=== PATIENT | female | born 1960 | race Caucasian/White ===

== ENCOUNTER 2018-07-01 19:21 | Inpatient (IN) | payer OTHER ==
[2018-07-01] MEDS ORDERED: ALBUTEROL NEBULIZED 2.5 MG/3 ML INHALATION STA (20:41)
[2018-07-01] MEDS ORDERED: ACETAMINOPHEN TAB 500 MG TAB PO STA (20:41)
[2018-07-01] MEDS ORDERED: SODIUM CHLORIDE 0.9% 500 ML 500 ML IV STA (20:41)
[2018-07-01] MEDS ORDERED: PIPERACILLIN-TAZOBACTAM 3.375 GM in SODIUM CHLORIDE 0.9% 100 ML IVPB STA (21:26)
--- NOTE | 2018-07-01 21:26 | ED ---
General Adult HPI - General Chief complaint: Upper Respiratory Infection Stated complaint: Sore throat, cough Time Seen by Provider: 07/01/18 20:03 Source: patient, family, RN notes reviewed Mode of arrival: ambulatory Limitations: no limitations - History of Present Illness Initial comments: Chief complaint and history of present illness this is a 58-year-old female here with her daughter. The patient reports she's been having a cough and congestion for almost 2 weeks. She saw her family doctor was placed on Augmentin for which she took for 4 days and then switched over to Levaquin for which she's been on one week. More recently prednisone was added and loratadine as well. Patient persisted with temperature 101.8 still with productive sounding cough. - Related Data Home Medications Medication Instructions Recorded Confirmed Levofloxacin [Levaquin] 500 mg PO DAILY MDD X 10 DAYS 07/01/18 07/01/18 Loratadine [Claritin] 10 mg PO DAILY 07/01/18 07/01/18 Promethazine 6.25MG/5Ml [Phenergan 5 - 10 ml PO QID 07/01/18 07/01/18 Syrup] predniSONE See Taper PO DIRECTED 07/01/18 07/01/18 Allergies Allergy/AdvReac Type Severity Reaction Status Date / Time No Known Allergies Allergy Verified 07/01/18 21:01 Review of Systems ROS Statement: Those systems with pertinent positive or pertinent negative responses have been documented in the HPI. Review of systems no headache or visual acuity changes no chest pain but she does have a productive sounding cough denies nausea vomiting. Past medical problems significant for breast cancer 15 years ago. The patient had a tubal ligation and right mastectomy. Family history significant for a sister with breast cancer. Patient denies any ALLERGIES she does smoke strongly encouraged to stop denies alcohol. The patient has no known ALLERGIES. ROS Other: All systems not noted in ROS Statement are negative. Past Medical History Past Medical History: Cancer, Skin Disorder Additional Past Medical History / Comment(s): OB history: 3 vaginal deliveries History of Any Multi-Drug Resistant Organisms: None Reported Past Surgical History: Tubal Ligation Additional Past Surgical History / Comment(s): right mastectomy 2002, with implants to both sides 2003,HERNIA-LT ING A CHILD, CORNEAL TRANSPLANT RT EYE 1997, ALL BOTTOM TEETH REMOVED 10/2014 Past Anesthesia/Blood Transfusion Reactions: Postoperative Nausea & Vomiting ( PONV) Additional Past Anesthesia/Blood Transfusion Reaction / Comment(s): PONV WITH TEETH EXTRACTIONS 10/2014 Past Psychological History: No Psychological Hx Reported Smoking Status: Current every day smoker Past Alcohol Use History: None Reported Past Drug Use History: None Reported - Past Family History Mother Family Medical History: Cancer Additional Family Medical History / Comment(s): BREAST CA Father Family Medical History: Cancer Additional Family Medical History / Comment(s): PROSTATE General Exam - General Exam Comments Initial Comments: General: The patient is awake and alert, presents with a persistent cough for over one week. With failed outpatient treatment. Temperature 101.8 pulse 93 respiratory rate 18 pulse ox 94% room air blood pressure 98/59. Eye: Pupils are equal, round and reactive to light, extra-ocular movements are intact ; there is normal conjunctiva bilaterally. No signs of icterus. Ears, nose, mouth and throat: There are moist mucous membranes and no oral lesions. Neck: The neck is supple, there is no tenderness . Cardiovascular: There is a regular rate and rhythm. No murmur, rub or gallop is appreciated. Respiratory: Lungs are clear to auscultation, respirations are non-labored, breath sounds are equal. Patient does have a cough which sounds productive complains of sore throat from frequent coughing Gastrointestinal: Soft, non-distended, non-tender abdomen without masses or organomegaly noted. There is no rebound or guarding present. No CVA tenderness. Bowel sounds are unremarkable. Denies diarrhea Back: There is no tenderness to palpation in the midline. There is no obvious deformity. No rashes noted. Musculoskeletal: Normal ROM, no tenderness, There is no pedal edema. There is no calf tenderness or swelling. Sensation intact. Neurological: No neuro deficits Skin: Skin is warm and dry and no rashes or lesions are noted. Psychiatric: Cooperative, Limitations: no limitations Course Vital Signs 07/01/18 07/01/18 07/01/18 19:50 21:26 21:36 Temperature 101.8 F H Pulse Rate 93 102 H 112 H Respiratory 18 14 Rate Blood Pressure 98/59 O2 Sat by Pulse 94 L Oximetry 07/01/18 22:23 Temperature 101.2 F H Pulse Rate 84 Respiratory 16 Rate Blood Pressure 113/47 O2 Sat by Pulse 93 L Oximetry Medical Decision Making - Medical Decision Making Patient has been on Augmentin and Levaquin for approximate 7 days without resolution of her cough. Labs show white count of 7 hemoglobin 14 hematocrit of 42 with a potassium 3.9. BUN 14 creatinine 0.8 for the GFR 76. Urine clean no signs of infection. X-ray of the chest was done and reviewed by radiologist his impression is right lower lobe bronchopneumonia. As read by Dr. Master Edmonds The patient had ordered been started on Zosyn for failed outpatient treatment. Case discussed with florentino operations administrative assistant for Dr. Hagen. Patient admitted the hospital and be continued on Zosyn. Cultures pending - Lab Data Result diagrams: 07/01/18 21:18 07/01/18 21:18 Lab Results 07/01/18 07/01/18 07/01/18 Range/Units 21:10 21:18 21:18 WBC 7.0 (3.8-10.6) k/uL RBC 4.76 (3.80-5.40) m/uL Hgb 14.5 (11.4-16.0) gm/dL Hct 42.6 (34.0-46.0) % MCV 89.6 (80.0-100.0) fL MCH 30.5 (25.0-35.0) pg MCHC 34.1 (31.0-37.0) g/dL RDW 13.1 (11.5-15.5) % Plt Count 168 (150-450) k/uL Neutrophils % 94 % Lymphocytes % 2 % Monocytes % 2 % Eosinophils % 2 % Basophils % 0 % Neutrophils # 6.5 (1.3-7.7) k/uL Lymphocytes # 0.2 L (1.0-4.8) k/uL Monocytes # 0.1 (0-1.0) k/uL Eosinophils # 0.1 (0-0.7) k/uL Basophils # 0.0 (0-0.2) k/uL Sodium 133 L (137-145) mmol/L Potassium 3.9 (3.5-5.1) mmol/L Chloride 99 (98-107) mmol/L Carbon Dioxide 23 (22-30) mmol/L Anion Gap 11 mmol/L BUN 14 (7-17) mg/dL Creatinine 0.84 (0.52-1.04) mg/dL Est GFR (CKD-EPI)AfAm 88 (>60 ml/min/1.73 sqM) Est GFR (CKD-EPI)NonAf 76 (>60 ml/min/1.73 sqM) Glucose 129 H (74-99) mg/dL Calcium 9.2 (8.4-10.2) mg/dL Urine Color Yellow Urine Appearance Clear (Clear) Urine pH 5.5 (5.0-8.0) Ur Specific [place] 1.022 (1.001-1.035) Urine Protein 1+ H (Negative) Urine Glucose (UA) Negative (Negative) Urine Ketones Negative (Negative) Urine Blood Small H (Negative) Urine Nitrite Negative (Negative) Urine Bilirubin Negative (Negative) Urine Urobilinogen <2.0 (<2.0) mg/dL Ur Leukocyte Esterase Negative (Negative) Urine RBC 1 (0-5) /hpf Urine WBC 2 (0-5) /hpf Ur Squamous Epith Cells 1 (0-4) /hpf Amorphous Sediment Rare H (None) /hpf Urine Bacteria Rare H (None) /hpf Hyaline Casts 1 (0-2) /lpf Urine Mucus Moderate H (None) /hpf Disposition Clinical Impression: Pneumonia Disposition: ADMITTED IP TO THIS HOSP Condition: Fair Is patient prescribed a controlled substance at d/c from ED?: No Referrals: Isma Santiago MD [Primary Care Provider] - 1-2 days
[2018-07-01 21:40] LABS: Amorphous Sediment,Urine Rare /hpf; Appearance,Urine Clear (Clear); Bacteria,Urine Rare /hpf; Bilirubin,Urine Negative (Negative); Blood,Urine Small (Negative); Color,Urine Yellow; Glucose,Urine (UA) Negative (Negative); Hyaline Casts,Urine 1 /lpf (0-2); Ketones,Urine Negative (Negative); Leukocyte Esterase,Urine Negative (Negative); Mucus,Urine Moderate /hpf; Nitrite,Urine Negative (Negative); PH, Urine 5.5 (5.0-8.0); Protein,Urine 1+ (Negative); RBC,Urine 1 /hpf (0-5); Specific Gravity,Urine 1.022 (1.001-1.035); Squamous Epithelial Cell,Urine 1 /hpf (0-4); Urobilinogen,Urine <2.0 mg/dL (<2.0)
[2018-07-01 21:41] LABS: Basophils % (A) 0 %; Eosinophils # (A) 0.1 k/uL (0-0.7); Eosinophils % (A) 2 %; HCT 42.6 % (34.0-46.0); HGB 14.5 gm/dL (11.4-16.0); Lymphocytes # (A) 0.2 k/uL (1.0-4.8); Lymphocytes % (A) 2 %; MCH 30.5 pg (25.0-35.0); MCHC 34.1 g/dL (31.0-37.0); MCV 89.6 fL (80.0-100.0); Mean Platelet Volume 6.4; Monocytes # (A) 0.1 k/uL (0-1.0); Monocytes % (A) 2 %; Neutrophils # (A) 6.5 k/uL (1.3-7.7); Neutrophils % (A) 94 %; Platelet Count 168 k/uL (150-450); RBC 4.76 m/uL (3.80-5.40); RDW 13.1 % (11.5-15.5)
[2018-07-01 21:43] LABS: Calcium 9.2 mg/dL (8.4-10.2); Potassium 3.9 mmol/L (3.5-5.1)
--- NOTE | 2018-07-01 21:57 | XR ---
EXAMINATION: XR chest 2V DATE AND TIME: 07/01/2018 9:50 PM CLINICAL INDICATION: Productive cough TECHNIQUE: PA and lateral COMPARISON: None. FINDINGS: The lungs are positive for consolidative opacity in the right lower lobe consistent with bronchopneum onia. Lungs are otherwise unremarkable. The pleural spaces are negative. The cardiac silhouette is not enlarged. The remainder of the mediastinal silhouette is unremarkable. Skeletal structures: No acute findings. Soft tissues: Asymmetric breast shadows noted, findings which suggest right mastectomy and left breas t implant. Request history confirmation. IMPRESSION: RIGHT LOWER LOBE BRONCHOPNEUMONIA. Recommend six-week follow-up PA and lateral chest radiograph to prove complete resolution.
[2018-07-01] MEDS ORDERED: SODIUM CHLORIDE 0.9% 1,000 ML IV SCH (22:30)
[2018-07-01] MEDS ORDERED: ONDANSETRON 4 MG/2 ML VIAL IVP PRN (22:30)
[2018-07-01] MEDS ORDERED: NALOXONE 0.4 MG/ML 1 ML VIAL IV PRN (22:30)
[2018-07-01] MEDS ORDERED: SODIUM CHLORIDE 0.9% 500 ML 500 ML IV ONE (22:39)
[2018-07-01] MEDS ORDERED: SODIUM CHLORIDE 0.9% 500 ML IV SCH (22:45)
[2018-07-02 00:12] VITALS: BMI 27.4
[2018-07-02] MEDS: ACETAMINOPHEN TAB 325 MG TAB PO PRN ×2 (00:19→08:01)
[2018-07-02] MEDS: PIPERACILLIN-TAZOBACTAM 3.375 GM in SODIUM CHLORIDE 0.9% 100 ML IVPB SCH ×2 (06:02→14:34)
[2018-07-02] MEDS: FAMOTIDINE 20 MG TAB PO SCH ×2 (08:01→20:55)
[2018-07-02] MEDS: NICOTINE 14MG/24HR PATCH TRANSDERM SCH (09:42)
[2018-07-02] MEDS ORDERED: PROMETHAZ-COD 6.25-10 MG/5 ML 5 ML CUP PO PRN (12:00)
[2018-07-02 12:14] LABS: Basophils % (A) 0 %; Eosinophils # (A) 0.1 k/uL (0-0.7); Eosinophils % (A) 4 %; HCT 37.2 % (34.0-46.0); HGB 12.7 gm/dL (11.4-16.0); Lymphocytes # (A) 0.2 k/uL (1.0-4.8); Lymphocytes % (A) 6 %; MCH 30.8 pg (25.0-35.0); MCHC 34.1 g/dL (31.0-37.0); MCV 90.2 fL (80.0-100.0); Mean Platelet Volume 6.9; Monocytes # (A) 0.1 k/uL (0-1.0); Monocytes % (A) 4 %; Neutrophils # (A) 3.1 k/uL (1.3-7.7); Neutrophils % (A) 85 %; Platelet Count 148 k/uL (150-450); RBC 4.13 m/uL (3.80-5.40); WBC 3.7 k/uL (3.8-10.6)
[2018-07-02] MEDS: ACETAMINOPHEN TAB 500 MG TAB PO PRN (13:25)
[2018-07-02] MEDS ORDERED: IPRATROPIUM-ALBUTEROL 3 ML NEB INHALATION PRN (13:52)
[2018-07-02] MEDS: SODIUM CHLORIDE 0.9% 1,000 ML IV SCH (14:36)
--- NOTE | 2018-07-02 15:19 | P.HPIM ---
History of Present Illness Patient is a 58-year-old female came in with comments of fever cough unable to bring up anything patient has the symptoms going on for more than 2 weeks appears to have started as viral upper respiratory last patient is a smoker. Doesn't have any history of COPD no wheezing at this time initially patient was on Augmentin the levofloxacin without any significant improvement and started having fever couple days ago. Patient is found to have pneumonia in the right lower lobe patient does have leukocytosis. Patient failed outpatient antibiotics because of which she is admitted for IV antibiotics for right lower lobe pneumonia. Review of Systems REVIEW OF SYSTEMS: CONSTITUTIONAL: no fatigue. HEENT: No recent visual problems or hearing problems. Denied any sore throat. CARDIOVASCULAR: No chest pain, orthopnea, PND, no palpitations, no syncope. PULMONARY: No shortness of breath, no hemoptysis. GASTROINTESTINAL: No diarrhea, no nausea, no vomiting, no abdominal pain. Normoactive bowel sounds. NEUROLOGICAL: No headaches, no weakness, no numbness. HEMATOLOGICAL: Denies any bleeding or petechiae. GENITOURINARY: Denies any burning micturition, frequency, or urgency. MUSCULOSKELETAL/RHEUMATOLOGICAL: Denies any joint pain, swelling, or any muscle pain. ENDOCRINE: Denies any polyuria or polydipsia. The rest of the 14-point review of systems is negative. Past Medical History Past Medical History: Cancer Additional Past Medical History / Comment(s): OB history: 3 vaginal deliveries History of Any Multi-Drug Resistant Organisms: None Reported Past Surgical History: Tubal Ligation Additional Past Surgical History / Comment(s): right mastectomy 2002, with implants to both sides 2003,HERNIA-LT ING A CHILD, CORNEAL TRANSPLANT RT EYE 1997, ALL BOTTOM TEETH REMOVED 10/2014 Past Anesthesia/Blood Transfusion Reactions: Postoperative Nausea & Vomiting ( PONV) Additional Past Anesthesia/Blood Transfusion Reaction / Comment(s): PONV WITH TEETH EXTRACTIONS 10/2014 Past Psychological History: No Psychological Hx Reported Smoking Status: Current every day smoker Past Alcohol Use History: None Reported Additional Past Alcohol Use History / Comment(s): STARTED SMOKING @ AGE 17(1976 ) -1PPD Past Drug Use History: None Reported - Past Family History Mother Family Medical History: Cancer Additional Family Medical History / Comment(s): BREAST CA Father Family Medical History: Cancer Additional Family Medical History / Comment(s): PROSTATE Medications and Allergies Home Medications Medication Instructions Recorded Confirmed Type Levofloxacin [Levaquin] 500 mg PO DAILY MDD X 10 DAYS 07/01/18 07/01/18 History Loratadine [Claritin] 10 mg PO DAILY 07/01/18 07/01/18 History Promethazine 6.25MG/5Ml [Phenergan 5 - 10 ml PO QID 07/01/18 07/01/18 History Syrup] predniSONE See Taper PO DIRECTED 07/01/18 07/01/18 History Allergies Allergy/AdvReac Type Severity Reaction Status Date / Time No Known Allergies Allergy Verified 07/01/18 21:01 Physical Exam Vitals: Vital Signs Temp Pulse Pulse Resp BP BP Pulse Ox 07/02/18 08:05 98.2 F 63 18 96/57 96 07/01/18 23:31 100.3 F H 07/01/18 23:29 78 16 107/53 98 07/01/18 22:23 101.2 F H 84 16 113/47 93 L 07/01/18 21:36 112 H 07/01/18 21:26 102 H 14 07/01/18 19:50 101.8 F H 93 18 98/59 94 L Intake and Output 07/02/18 07/02/18 07/02/18 06:59 14:59 22:59 Intake Total 625 Balance 625 Intake: Intake, IV Titration 625 Amount Sodium Chloride 0.9% 1, 625 000 ml @ 125 mls/hr IV . Q8H [facility] Rx#:[id number] Other: Weight 72.575 kg PHYSICAL EXAMINATION: GENERAL: The patient is alert and oriented x3, not in any acute distress. Well developed, well nourished. HEENT: Pupils are round and equally reacting to light. EOMI. No scleral icterus. No conjunctival pallor. Normocephalic, atraumatic. No pharyngeal erythema. No thyromegaly. CARDIOVASCULAR: S1 and S2 present. No murmurs, rubs, or gallops. PULMONARY: Chest is clear to auscultation, no wheezing or crackles. ABDOMEN: Soft, nontender, nondistended, normoactive bowel sounds. No palpable organomegaly. MUSCULOSKELETAL: No joint swelling or deformity. EXTREMITIES: No cyanosis, clubbing, or pedal edema. NEUROLOGICAL: Gross neurological examination did not reveal any focal deficits. SKIN: No rashes. Results CBC & Chem 7: 07/02/18 09:26 07/01/18 21:18 Labs: Abnormal Lab Results - Last 24 Hours (Table) 07/01/18 07/01/18 07/01/18 Range/Units 21:10 21:18 21:18 WBC (3.8-10.6) k/uL Plt Count (150-450) k/uL Lymphocytes # 0.2 L (1.0-4.8) k/uL Sodium 133 L (137-145) mmol/L Glucose 129 H (74-99) mg/dL Urine Protein 1+ H (Negative) Urine Blood Small H (Negative) Amorphous Sediment Rare H (None) /hpf Urine Bacteria Rare H (None) /hpf Urine Mucus Moderate H (None) /hpf 07/02/18 Range/Units 09:26 WBC 3.7 L (3.8-10.6) k/uL Plt Count 148 L (150-450) k/uL Lymphocytes # 0.2 L (1.0-4.8) k/uL Sodium (137-145) mmol/L Glucose (74-99) mg/dL Urine Protein (Negative) Urine Blood (Negative) Amorphous Sediment (None) /hpf Urine Bacteria (None) /hpf Urine Mucus (None) /hpf Thrombosis Risk Factor Assmnt - Choose All That Apply Each Factor Represents 1 point: Age 41-60 years Other Risk Factors: No Other congenital or acquired thrombophilia - If yes, enter type in comment: No Thrombosis Risk Factor Assessment Total Risk Factor Score: 1 Thrombosis Risk Factor Assessment Level: Low Risk Assessment and Plan Plan: -Right lower lobe, today quite pneumonia most probably pneumococcal: Patient will be started on Rocephin and azithromycin and discontinue Zosyn. -Hyponatremia hypotonic hyponatremia patient will be started on IV fluids -Possible that they have noticed of COPD although patient is not in acute exacerbation at this time patient may benefit from outpatient pulmonary testing nicotine cessation counseling was provided. Patient will be switched to oral steroids continue with inhalational treatments -Nicotine abuse: Counseling was provided Patient will need GI prophylaxis with the Pepcid DVT prophylaxis: Early ablation will not need any pharmacologic DVT prophylaxis
[2018-07-02] MEDS: predniSONE 20 MG TAB PO SCH (16:03)
[2018-07-02] MEDS: IPRATROPIUM-ALBUTEROL 3 ML NEB INHALATION SCH ×2 (16:47→20:29)
[2018-07-02] MEDS: cefTRIAXone 2,000 MG in SODIUM CHLORIDE 0.9% 100 ML IVPB SCH (17:56)
[2018-07-02] MEDS ORDERED: methylPREDNISolone SOD SUCCI 40 MG/ML 1 ML VIAL IV SCH (18:00)
[2018-07-02] MEDS: BUDESONIDE 1 MG/2 ML NEBU INHALATION SCH (20:29)
[2018-07-02] MEDS: FORMOTEROL FUMARATE 20 MCG/2 ML NEBU INHALATION SCH (20:35)
--- NOTE | 2018-07-02 22:30 | CONS ---
CONSULTATION This is a 58-year-old female who likely has underlying COPD. She has been smoking for 35 years or so. She smokes a pack and half a day. The last couple of weeks she has been feeling well. The patient states that she is having complaints of shortness of breath, chest tightness, wheezing and cough. She went to her primary doctor, Dr. Santiago. She received some antibiotics. She took that for a few days and then switched over to another antibiotic. I believe she was on Augmentin first and then Levaquin. In addition, she was given some prednisone and loratadine. Despite all of that, she did not improve and for that reason she decided to come into the emergency room to be seen. She presented to the ER on July 01. Her complaints included shortness of breath, chest tightness, wheezing and cough. She was coughing up some phlegm. She had a slight temperature elevation as well. The patient was wheezing. She had lots of chest congestion. Not coughing up any blood. There was no chest pain or chest discomfort. There was no nausea, vomiting or diarrhea. She states she is otherwise healthy and takes no medications at home on a regular basis. She is a heavy smoker though. HOME MEDICATIONS: Only included the medications that she was given by Dr. Santiago. This included initially Augmentin and then Levaquin, loratadine, some cough syrup with codeine and prednisone. ALLERGIES: Denied. PAST MEDICAL HISTORY: Includes previous right mastectomy for breast cancer back in 2002. The patient also has a history of corneal transplant in the right eye, all of her bottom teeth removed back in 2014 and a tubal ligation. She has also had 3 vaginal deliveries. SOCIAL HISTORY: Positive for ongoing tobacco use. She smokes at least a pack of cigarettes a day or maybe a bit more. Denies any alcohol or illicit drug use. FAMILY HISTORY: Positive for breast cancer and prostate disease. OCCUPATIONAL HISTORY: Noncontributory. Again, she takes no medications at home on a regular basis. Has never been seen by a lung doctor. Has never been diagnosed with COPD. REVIEW OF SYSTEMS: CONSTITUTIONAL: Negative. NEUROLOGIC: Negative. HEENT: Negative. CARDIOVASCULAR: Negative. PULMONARY: Shortness of breath, chest tightness, wheezing, cough, chest congestion and phlegm production. GI/: Negative. RHEUMATOLOGIC/IMMUNOLOGIC: Negative. ENDOCRINOLOGIC AND DERMATOLOGIC: Negative. Current vital signs are reviewed. They include a temperature of 100.3, heart rate 63, respiratory rate 18, blood pressure 96/57, mean 70, room air saturation 96%. Appears in no acute distress. HEENT examination is grossly unremarkable. Mucous membranes are moist. No oral lesions. NECK: Supple. Full range of motion. No adenopathy or thyromegaly. Neck veins are flat. Cardiovascular examination reveals regular rhythm rate. Heart rate about mid 70. S1, S2 normal. No S3, S4, murmur. Lungs reveal diffuse inspiratory and expiratory wheezes and rhonchi. Breath sounds are diminished throughout. There is prolongation on forced maneuver. Adventitious lung sounds are more prominent on forced maneuver and she coughs on forced maneuver. No crackles. Abdomen is soft bowel sounds are heard. Extremities are intact. No cyanosis, clubbing, or edema. Skin without rash. Neurologic examination is brief but nonfocal. Chest is reviewed. Chest x-ray shows possible infiltrate right lower lobe. Looks more like atelectasis to me. Could be an infiltrate. LABS: Reviewed. White count 3.7, hemoglobin 12.7, hematocrit 37.2, platelet count 148,000. Sodium 133. Potassium, chloride, CO2 all normal. Anion gap normal. BUN and creatinine were 14 and 0.84. Urine is negative. Medications are reviewed. She is currently on the Zosyn. She is also on promethazine with codeine cough syrup. We are going to add some DuoNeb. Would also add some Pulmicort and Perforomist. We will also add some Solu-Medrol. ASSESSMENT: 1. Chronic obstructive pulmonary disease exacerbation complicated by bronchitis and possible bronchial pneumonia, right lower lobe. 2. Ongoing tobacco use with nicotine addiction. 3. Failing outpatient therapy. 4. Probable chronic obstructive pulmonary disease based on the patient's longstanding history of tobacco use. PLAN: The patient will get DuoNeb q.i.d. p.r.n. The patient will also get Perforomist and Pulmicort 1 mg twice a day. We will add Solu-Medrol 60 mg q.6h. Additional recommendations and suggestions are forthcoming. Prognosis is guarded. We will continue to follow. She will need outpatient evaluation and PFTs. We counseled her about the importance of smoking cessation. MMODL / IJN: [id number] /
[2018-07-03] MEDS ORDERED: BENZOCAINE/MENTHOL LOZENG 1 EACH LOZENGE MUCOUS MEM PRN (01:13)
[2018-07-03] MEDS: SODIUM CHLORIDE 0.9% 1,000 ML IV SCH ×3 (01:40→21:07)
[2018-07-03 07:47] LABS: HCT 34.9 % (34.0-46.0); HGB 11.8 gm/dL (11.4-16.0); MCH 30.8 pg (25.0-35.0); MCHC 33.9 g/dL (31.0-37.0); MCV 90.8 fL (80.0-100.0); Mean Platelet Volume 6.9; Platelet Count 141 k/uL (150-450); RBC 3.84 m/uL (3.80-5.40); RDW 13.2 % (11.5-15.5); WBC 3.6 k/uL (3.8-10.6)
[2018-07-03 07:59] LABS: Anion Gap 6 mmol/L; Blood Urea Nitrogen 11 mg/dL (7-17); Calcium 8.4 mg/dL (8.4-10.2); Carbon Dioxide 23 mmol/L (22-30); Chloride 109 mmol/L (98-107); Glucose 108 mg/dL (74-99); Sodium 138 mmol/L (137-145)
[2018-07-03] MEDS: IPRATROPIUM-ALBUTEROL 3 ML NEB INHALATION SCH ×4 (08:48→20:39)
[2018-07-03] MEDS: FORMOTEROL FUMARATE 20 MCG/2 ML NEBU INHALATION SCH ×2 (08:48→20:47)
[2018-07-03] MEDS: BUDESONIDE 1 MG/2 ML NEBU INHALATION SCH ×2 (08:48→20:40)
[2018-07-03 08:53] VITALS: RESP 16
[2018-07-03] MEDS: cefTRIAXone 2,000 MG in SODIUM CHLORIDE 0.9% 100 ML IVPB SCH (09:00)
[2018-07-03] MEDS: FAMOTIDINE 20 MG TAB PO SCH ×2 (09:01→21:02)
[2018-07-03] MEDS: NICOTINE 14MG/24HR PATCH TRANSDERM SCH (09:01)
[2018-07-03] MEDS: ACETAMINOPHEN TAB 500 MG TAB PO PRN (09:01)
[2018-07-03] MEDS: predniSONE 20 MG TAB PO SCH (09:01)
[2018-07-03] MEDS: AZITHROMYCIN 500 MG TAB PO SCH (09:01)
--- NOTE | 2018-07-03 13:55 | PN ---
PROGRESS NOTE DATE OF SERVICE: July 03, 2018 This is a 58-year-old female who we saw yesterday in consultation. She sees one of the local family doctors. She has been treated for an upper respiratory tract infection with some antibiotics and steroids. She has got a long-term history of tobacco use, smoking for at least 35 years at 1 and half packs a day. Has never seen a lung doctor in the past and has no formal diagnosis of COPD, although it is very apparent to me that she likely has it. Anyway, she comes in with complaints of shortness of breath, chest tightness, wheezing, cough, and phlegm production. She was given Augmentin initially and then switched to Levaquin. She was also given some steroids and some loratadine. Despite all that, she did not improve and for that reason she came into the hospital to be evaluated. While in the hospital, she was found to have a possible right lower lobe infiltrate and was admitted with a diagnosis of chronic obstructive pulmonary disease exacerbation and right lower lobe pneumonia. Today she is feeling better. She is less short of breath. Not currently back to baseline. The patient still has shortness of breath, chest tightness, wheezing, cough, chest congestion, and phlegm production. No fever or chills. She also has a history of previous right mastectomy for breast cancer back in 2002. Current vital signs are reviewed temperature is 99.1, heart rate 82, respiratory 16, blood pressure 126/78, mean 88, room air saturation 99%. She appears in no acute distress. She does look better today. HEENT examination is grossly unremarkable. Mucous membranes are moist. No oral lesions. No nasal O2 noted. She is on room air. Neck is supple. Full range of motion. No adenopathy or thyromegaly. Neck veins are flat. Cardiovascular examination reveals regular rhythm and rate. Heart rate about 60 beats per minute. S1, S2 normal. Lungs reveal diffuse inspiratory and expiratory wheezes or rhonchi. There is prolongation on forced maneuver. No crackles. The patient wheezes and coughs on forced maneuver. Abdomen is soft. Bowel sounds are heard. There is no masses or tenderness. Extremities are intact. There is no cyanosis, clubbing, or edema. Skin without rash. Her neurologic examination is brief but nonfocal. LAB DATA: Today includes a white count of 3.6, hemoglobin 11.8, hematocrit 34.9, platelet count 141,000. Sodium 138, potassium 4, chloride 109 CO2 is 23, BUN and creatinine were 11 and 0.6. Chest x-ray shows a potential infiltrate right lower lobe. MEDICATIONS: Reviewed. She is on all appropriate medications including Zithromax and Rocephin. She is on Pulmicort and Perforomist twice a day. She is also on prednisone having been converted from Solu-Medrol. Microbiologic studies are thus far negative or pending. ASSESSMENT: 1. Chronic obstructive pulmonary disease exacerbation complicated by purulent tracheobronchitis and bronchial pneumonia, right lower lobe. 2. Hypoxemic respiratory failure secondary to chronic obstructive pulmonary disease and right lower lobe pneumonia. 3. Ongoing tobacco use with nicotine addiction. 4. Previous history of breast cancer with mastectomy. PLAN: The patient's medications are reviewed. Everything is appropriate. She seems to have improved significantly in the last 24 hours. The patient might be considered for discharge in the next 24-48 hours. I did gambling counsellor her about the importance of smoking cessation. In addition, she should see us in the office for complete pulmonary function testing so we can properly establish diagnosis of chronic obstructive pulmonary disease. Additional recommendations and suggestions forthcoming. Prognosis is guarded. MMODL / IJN: [id number] /
--- NOTE | 2018-07-03 15:51 | P.PN ---
Subjective Patient was admitted secondary to come in with a community-acquired pneumonia is feeling much better today. will occur 1 more day 5 antibodies possibly can be discharged tomorrow and oral antibiotics shortness of breath completely resolved Constitutional: Denied any fatigue denied any fever. Cardio vascular: denied any chest pain, palpitations Gastrointestinal denied any nausea vomiting Pulmonary: Denied any shortness of breath cough Neurologic denied any new focal deficits All inpatient medications were reviewed and appropriate changes in these medications as dictated in the interval history and assessment and plan. Objective - Vital Signs Vital signs: Vital Signs Temp 98.6 F 07/03/18 15:00 Pulse 67 07/03/18 15:00 Resp 16 07/03/18 15:00 BP 122/70 07/03/18 15:00 Pulse Ox 97 07/03/18 15:00 Intake & Output 07/02/18 07/03/18 07/03/18 18:59 06:59 18:59 Intake Total 238 271 9720 Balance 657 432 6017 Weight 72.575 kg Intake: Intake, IV Titration 100 800 800 Amount Sodium Chloride 0.9% 1, 800 700 000 ml @ 100 mls/hr IV . Q10H [facility]O Rx#:[id number] cefTRIAXone 2,000 mg In 100 100 Sodium Chloride 0.9% 100 ml @ 100 mls/hr IVPB Q24HR ELICEO Rx#:[id number] Oral 240 Other: Voiding Method Toilet Toilet # Voids 3 2 # Bowel Movements 1 - Exam PHYSICAL EXAMINATION: GENERAL: The patient is alert and oriented x3, not in any acute distress. Well developed, well nourished. HEENT: Pupils are round and equally reacting to light. EOMI. No scleral icterus. No conjunctival pallor. Normocephalic, atraumatic. No pharyngeal erythema. No thyromegaly. CARDIOVASCULAR: S1 and S2 present. No murmurs, rubs, or gallops. PULMONARY: Chest is clear to auscultation, no wheezing or crackles. ABDOMEN: Soft, nontender, nondistended, normoactive bowel sounds. No palpable organomegaly. MUSCULOSKELETAL: No joint swelling or deformity. EXTREMITIES: No cyanosis, clubbing, or pedal edema. NEUROLOGICAL: Gross neurological examination did not reveal any focal deficits. SKIN: No rashes. - Labs CBC & Chem 7: 07/03/18 07:06 07/03/18 07:06 Labs: Abnormal Lab Results - Last 24 Hours (Table) 07/03/18 07/03/18 Range/Units 07:06 07:06 WBC 3.6 L (3.8-10.6) k/uL Plt Count 141 L (150-450) k/uL Chloride 109 H (98-107) mmol/L Glucose 108 H (74-99) mg/dL Microbiology - Last 24 Hours (Table) 07/01/18 22:26 Blood Culture - Preliminary Blood No Growth after 24 hours Assessment and Plan Plan: -Right lower lobe, today quite pneumonia most probably pneumococcal: Patient will be started on Rocephin and azithromycin, possibility of discharge tommorow -Hyponatremia hypotonic hyponatremia E fluids and IV fluids will be discontinued COPD although patient is not in acute exacerbation at this time patient may benefit from outpatient pulmonary testing nicotine cessation counseling was provided. Patient will be switched to oral steroids continue with inhalational treatments -Nicotine abuse: Counseling was provided Patient will need GI prophylaxis with the Pepcid DVT prophylaxis: Early ablation will not need any pharmacologic DVT prophylaxis
[2018-07-03] MEDS ORDERED: MELATONIN 3 MG TABLET PO PRN (21:00)
[2018-07-03] MEDS ORDERED: MELATONIN 3 MG TABLET PO SCH (21:00)
[2018-07-04] MEDS: IPRATROPIUM-ALBUTEROL 3 ML NEB INHALATION SCH ×3 (07:41→16:02)
[2018-07-04] MEDS: FORMOTEROL FUMARATE 20 MCG/2 ML NEBU INHALATION SCH (07:42)
[2018-07-04] MEDS: BUDESONIDE 1 MG/2 ML NEBU INHALATION SCH (07:42)
[2018-07-04 08:23] VITALS: BP 133/75; TEMP 98.3
[2018-07-04] MEDS: ACETAMINOPHEN TAB 500 MG TAB PO PRN (09:18)
[2018-07-04] MEDS: NICOTINE 14MG/24HR PATCH TRANSDERM SCH (09:19)
[2018-07-04] MEDS: cefTRIAXone 2,000 MG in SODIUM CHLORIDE 0.9% 100 ML IVPB SCH (09:20)
[2018-07-04] MEDS: predniSONE 20 MG TAB PO SCH (09:20)
[2018-07-04] MEDS: AZITHROMYCIN 500 MG TAB PO SCH (09:20)
[2018-07-04] MEDS: FAMOTIDINE 20 MG TAB PO SCH (09:20)
[2018-07-04 11:18] VITALS: PULSE 72
--- NOTE | 2018-07-04 13:53 | P.DS ---
Providers Date of admission: 07/01/18 22:33 Attending physician: Oscar Hagen Consults: 07/02/18 12:01 Consult Physician Urgent Consulting Provider: Yuriy Bartlett Consult Reason/Comments: pneumonia Do you want consulting provider notified?: Yes Primary care physician: Pamela Ashby Hospital Course: Patient is admitted for community acquired pneumonia and mild soap exam patient clinically doing well will be discharged on Ceftin weaning dose of steroids will follow with PCP and dialysis registered nurse outpatient. Excessive counseling regarding nicotine cessation was provided PHYSICAL EXAMINATION: GENERAL: The patient is alert and oriented x3, not in any acute distress. Well developed, well nourished. HEENT: Pupils are round and equally reacting to light. EOMI. No scleral icterus. No conjunctival pallor. Normocephalic, atraumatic. No pharyngeal erythema. No thyromegaly. CARDIOVASCULAR: S1 and S2 present. No murmurs, rubs, or gallops. PULMONARY: Chest is clear to auscultation, no wheezing or crackles. ABDOMEN: Soft, nontender, nondistended, normoactive bowel sounds. No palpable organomegaly. MUSCULOSKELETAL: No joint swelling or deformity. EXTREMITIES: No cyanosis, clubbing, or pedal edema. NEUROLOGICAL: Gross neurological examination did not reveal any focal deficits. SKIN: No rashes. Assessment and Plan Plan: -Right lower lobe pneumonia most probably pneumococcal, community-acquired patient was on Rocephin and azithromycin will be discharged on Ceftin for 7 more days -Hyponatremia hypotonic hyponatremia improved with IV fluids COPD with mild acute exacerbation and patient -Nicotine abuse: Counseling was provided Patient Condition at Discharge: Fair Plan - Discharge Summary Discharge Rx Participant: Yes New Discharge Prescriptions: New Albuterol Inhaler [Ventolin Hfa Inhaler] 1 - 2 puff INHALATION Q6HR PRN #1 inhaler PRN Reason: Shortness Of Breath Or Wheezing Budesonide-Formot 160-4.5 Mcg [Symbicort 160-4.5 Mcg Inhaler] 2 puff INHALATION BID #1 inhaler Cefuroxime Axetil [Ceftin] 500 mg PO BID #14 tab predniSONE 10 mg PO DAILY #30 tab Tiotropium [place] [Spiriva] 1 cap INHALATION DAILY #1 device Discontinued Levofloxacin [Levaquin] 500 mg PO DAILY MDD X 10 DAYS predniSONE See Taper PO DIRECTED No Action Promethazine 6.25MG/5Ml [Phenergan Syrup] 5 - 10 ml PO QID Loratadine [Claritin] 10 mg PO DAILY Discharge Medication List Loratadine [Claritin] 10 mg PO DAILY 07/01/18 [History] Promethazine 6.25MG/5Ml [Phenergan Syrup] 5 - 10 ml PO QID 07/01/18 [History] Albuterol Inhaler [Ventolin Hfa Inhaler] 1 - 2 puff INHALATION Q6HR PRN #1 inhaler 07/04/18 [Rx] Budesonide-Formot 160-4.5 Mcg [Symbicort 160-4.5 Mcg Inhaler] 2 puff INHALATION BID #1 inhaler 07/04/18 [Rx] Cefuroxime Axetil [Ceftin] 500 mg PO BID #14 tab 07/04/18 [Rx] Tiotropium [place] [Spiriva] 1 cap INHALATION DAILY #1 device 07/04/18 [Rx] predniSONE 10 mg PO DAILY #30 tab 07/04/18 [Rx] Follow up Appointment(s)/Referral(s): Isma Santiago MD [Primary Care Provider] - 07/11/18 1:00 pm Yuriy Bartlett DO [Doctor of Osteopathic Medicine] - 07/19/18 2:45 pm (full pulmonary function work up) Patient Instructions/Handouts: Pneumonia (DC) Discharge Disposition: HOME SELF-CARE
--- NOTE | 2018-07-04 18:08 | P.PN ---
Subjective Progress Note Date: 07/04/18 78-year-old female patient was being seen in follow-up on today's evaluation regarding her pulmonary status and COPD. The patient is a chronic smoker and she is a 16-cnoy-gyly smoking history and she has COPD P at she has not seen a merchandising consultant in the past. She was being treated for a right lower lobe pneumonia and acute COPD exacerbation. She was given Augmentin and then she was switched to Levaquin. She was also given systemic steroids. She did improve and today she is very much close to her baseline. No nausea. No vomiting. No abdominal pain. I reviewed her chest x-ray. The patient has had previous mastectomy and breast implants back in 2002. I do not clearly appreciated the right lower lobe pneumonia. I think the findings in the chest x -ray is probably related to her breast implants causing some degree of opacification of the right lung base. Otherwise, the patient is emanating. No significant cough or sputum production. No fever chills or night sweats. No other significant events on today's evaluation. Objective - Vital Signs Vital signs: Vital Signs Temp 98.3 F 07/04/18 07:00 Pulse 72 07/04/18 11:24 Resp 16 07/04/18 09:19 BP 133/75 07/04/18 07:00 Pulse Ox 96 07/04/18 07:00 Intake & Output 07/03/18 07/04/18 07/04/18 18:59 06:59 18:59 Intake Total 1040 700 Balance 1040 700 Weight 72.575 kg Intake: Intake, IV Titration 800 Amount Sodium Chloride 0.9% 1, 700 000 ml @ 100 mls/hr IV . Q10H [facility] Rx#:[id number] cefTRIAXone 2,000 mg In 100 Sodium Chloride 0.9% 100 ml @ 100 mls/hr IVPB Q24HR [facility] Rx#:[id number] Oral 240 700 Other: Voiding Method Toilet Toilet # Voids 2 2 # Bowel Movements 1 - Exam The patient appeared well nourished and normally developed. Vital signs as documented. Head exam is unremarkable. No scleral icterus or corneal arcus noted. Neck is without jugular venous distension, thyromegaly, or carotid bruits. Carotid upstrokes are brisk bilaterally. Lungs are clear to auscultation and percussion. There is diminished breath sounds bilaterally and the patient has breast implants bilaterally. Cardiac exam reveals the PMI to be normally sized and situated. Rhythm is regular. First and second heart sounds normal. No murmurs, rubs or gallops. Abdominal exam reveals normal bowel sounds, no masses, no organomegaly and no aortic enlargement. Extremities are nonedematous and both femoral and pedal pulses are normal.Examination of the skin revealed no evidence of significant rashes, suspicious appearing nevi or other concerning lesions. Neurologically the patient is awake and alert and there is no focal neurological deficits. - Labs CBC & Chem 7: 07/03/18 07:06 07/03/18 07:06 Labs: Microbiology - Last 24 Hours (Table) 07/01/18 22:26 Blood Culture - Preliminary Blood No Growth after 48 hours Assessment and Plan Plan: Assessment 1 acute COPD exacerbation 2 questionable right lower lobe pneumonia based on the chest x-ray finding, improving currently on antibiotics 3 previous history of breast cancer with bilateral mastectomy and implants 4 smoker Plan Smoking cessation counseling was done. The patient is currently on room air. Completed the course of antibiotics and discharge this patient home on oral Levaquin. Outpatient 40 function tests. Outpatient prednisone burst taper. Cut down the IV fluids to KVO.
== END 2018-07-04 13:30 | disposition home or self-care (01) | DRG 193 ==
LOC: EC 19:21 → 4MS4W 22:33 → 4SSUR 23:18
PROVIDERS: ADMIT Hospitalist; ATTEND Hospitalist
DX: J13 Pneumonia due to Streptococcus pneumoniae (principal); J96.91 Respiratory failure, unspecified with hypoxia; E87.1 Hypo-osmolality and hyponatremia; J44.0 Chronic obstructive pulmonary disease with (acute) lower respiratory infection; J44.1 Chronic obstructive pulmonary disease with (acute) exacerbation; F17.210 Nicotine dependence, cigarettes, uncomplicated; Z71.6 Tobacco abuse counseling; F32.9 Major depressive disorder, single episode, unspecified; Z80.3 Family history of malignant neoplasm of breast; Z85.3 Personal history of malignant neoplasm of breast; Z90.13 Acquired absence of bilateral breasts and nipples; Z94.7 Corneal transplant status; Z98.82 Breast implant status
CPT/HCPCS: 36415; 71046; 80048; 81001; 85025; 85027; 87040; 94640; 96365; 96366; 99284

== ENCOUNTER → 2018-09-01 | Outpatient (CLI) | payer OTHER ==
--- NOTE | 2018-09-01 16:00 | US ---
EXAMINATION TYPE: US thyroid st tissue head/neck DATE OF EXAM: 09/01/2018 COMPARISON: NONE CLINICAL HISTORY: Swelling mass R22.0. hypothyroidism blood values enlarged sancho thyroid GLAND SIZE: Right Lobe: 5.6 x 2.3 x 3.0 cm Overall Parenchyma: heterogenous Left Lobe: 5.2 x 3.0 x 3.2 cm Overall Parenchyma: heterogeneous Isthmus Thickness: 0.5 cm NODULES RIGHT: # of nodules measured on right: 1 1. 2.1 X 2.0 x 2.2 cm echogenic solid nodule at the upper pole with well-defined margins. This nodu le is round and shows intranodular vascularity. Prior size: no prior LEFT: # of nodules measured on left: 1 1. 0.8 X 0.5 x 0.7 cm echogenic solid nodule at the lower pole with well-defined margins; . This n odule is wider than tall and shows intranodular vascularity. Prior size: no prior ISTHMUS: # of nodules measured in the isthmus: 0 Bilateral neck scanned, no evidence of lymphadenopathy. IMPRESSION: 1. 2 cm right lobe thyroid nodule. Consider correlation with nuclear medicine scan.
== END | disposition home or self-care (01) ==
LOC: RADUSWWP 15:29
PROVIDERS: ATTEND Internal Medicine
DX: E04.1 Nontoxic single thyroid nodule (principal)
CPT/HCPCS: 76536

== ENCOUNTER 2024-04-24 16:56 | Inpatient (IN) | payer MEDICARE ==
--- NOTE | 2024-04-24 17:26 | ED ---
Recheck HPI - General Source: patient, family, RN notes reviewed <Ngozi Kohler - Last Filed: 04/24/24 17:24> <Param Lucas - Last Filed: 04/24/24 19:34> - General Stated Complaint: abn labs Time Seen by Provider: 04/24/24 17:10 - History of Present Illness Initial Comments: Quick [id number] female presents emergency department for chief complaint of abnormal labs. Patient had a blood draw completed this morning ordered by her primary care provider which revealed a dangerously high calcium level and she was instructed reports emergency department. Patient has a history of thyroidectomy. Endorses dyspnea on exertion and states that she has been feeling off balance over the last few weeks. (Ngozi Kohler) Dictation was produced using [employer] dictation software. please excuse any grammatical, word or spelling errors. Chief Complaint: 64-year-old female presents with abnormal outpatient labs History of Present Illness: Patient 64-year-old female she is trying to establish care with new primary care doctor. She had blood work drawn today. She did complain to the primary care doctor that she has been having symptoms of difficulty maintaining her balance along with diffuse bodyaches. She had blood work drawn and was found to be hypercalcemic. Patient [place] any history of malignancy. She does have history of thyroidectomy. She takes thyroid medications. The ROS documented in this emergency department record has been reviewed and confirmed by me. Those systems with pertinent positive or negative responses have been documented in the HPI. All other systems are other negative and/or noncontributory. (Param Lucas) - Related Data Home Medications Medication Instructions Recorded Confirmed Loratadine [Claritin] 10 mg PO DAILY 07/01/18 07/01/18 Promethazine 6.25MG/5Ml [Phenergan 5 - 10 ml PO QID 07/01/18 07/01/18 Syrup] Previous Rx's Medication Instructions Recorded Albuterol Inhaler [Ventolin Hfa 1 - 2 puff INHALATION Q6HR PRN #1 07/04/18 Inhaler] inhaler Budesonide-Formot 160-4.5 Mcg 2 puff INHALATION BID #1 inhaler 07/04/18 [Symbicort 160-4.5 Mcg Inhaler] Tiotropium [place] [Spiriva] 1 cap INHALATION DAILY #1 device 07/04/18 cefUROXime axetiL [Ceftin] 500 mg PO BID #14 tab 07/04/18 predniSONE 10 mg PO DAILY #30 tab 07/04/18 Allergies Allergy/AdvReac Type Severity Reaction Status Date / Time No Known Allergies Allergy Verified 04/24/24 17:31 Review of Systems ROS Other: All systems not noted in ROS Statement are negative. <Ngozi Kohler - Last Filed: 04/24/24 17:24> ROS Other: All systems not noted in ROS Statement are negative. <Param Lucas - Last Filed: 04/24/24 19:34> ROS Statement: Those systems with pertinent positive or pertinent negative responses have been documented in the HPI. Past Medical History Past Medical History: Cancer Additional Past Medical History / Comment(s): OB history: 3 vaginal deliveries History of Any Multi-Drug Resistant Organisms: None Reported Past Surgical History: Tubal Ligation Additional Past Surgical History / Comment(s): right mastectomy 2002, with implants to both sides 2003,HERNIA-LT ING A CHILD, CORNEAL TRANSPLANT RT EYE 1997, ALL BOTTOM TEETH REMOVED 10/2014 Past Anesthesia/Blood Transfusion Reactions: Postoperative Nausea & Vomiting (PONV) Additional Past Anesthesia/Blood Transfusion Reaction / Comment(s): PONV WITH TEETH EXTRACTIONS 10/2014 Past Psychological History: No Psychological Hx Reported Past Alcohol Use History: None Reported Additional Past Alcohol Use History / Comment(s): STARTED SMOKING @ AGE 17(1976) -1PPD Past Drug Use History: None Reported - Past Family History Mother Family Medical History: Cancer Additional Family Medical History / Comment(s): BREAST CA Father Family Medical History: Cancer Additional Family Medical History / Comment(s): PROSTATE <Ngozi Kohler - Last Filed: 04/24/24 17:24> General Exam <Ngozi Kohler - Last Filed: 04/24/24 17:24> <Param Lucas - Last Filed: 04/24/24 19:34> - General Exam Comments Initial Comments: Visual Physical Exam Vital signs reviewed General: Well-appearing, nontoxic, no acute distress. Head: Normocephalic, atraumatic Eyes: PERRLA, EOMI ENT: Airway patent Chest: Nonlabored breathing Skin: No visual rash, normal skin tone Neuro: Alert and oriented 3 Musculoskeletal: No gross abnormalities (Ngozi Kohler) PHYSICAL EXAM: General Impression: Alert and oriented x3, not in acute distress HEENT: Normocephalic atraumatic, extra-ocular movements intact, pupils equal and reactive to light bilaterally, mucous membranes moist. Cardiovascular: Heart regular rate and rhythm Chest: Able to complete full sentences, no retractions, no tachypnea Abdomen: abdomen soft, non-tender, non-distended, no organomegaly Musculoskeletal: Pulses present and equal in all extremities, no peripheral edema Motor: no focal deficits noted Neurological: CN II-XII grossly intact, no focal motor or sensory deficits noted Skin: Intact with no visualized rashes Psych: Normal affect and mood (Param Lucas) Course Vital Signs 04/24/24 17:26 Temperature 98.2 F Pulse Rate 56 L Respiratory 18 Rate Blood Pressure 152/73 O2 Sat by Pulse 98 Oximetry Medical Decision Making <Ngozi Kohler - Last Filed: 04/24/24 17:24> - Lab Data Result diagrams: 04/24/24 17:42 04/24/24 17:42 <Param Lucas - Last Filed: 04/24/24 19:34> - Medical Decision Making I completed the quick note portion of this chart signed Ngozi Kohler PA-C (Ngozi Kohler) My EKG interpretation: Ventricular rate 48, sinus bradycardia,. 172, QRS 114, QTc 445. No CT prolongation, no QTC prolongation, no ST or T-wave changes noted. Overall, this EKG is unremarkable Was pt. sent in by a medical professional or institution ([facility] Lucia, NITROGLYCERIN SUPERVISOR, urgent care, hospital, or long term...) When possible be specific @ -No Did you speak to anyone other than the patient for history (EMS, parent, family, police, friend...)? What history was obtained from this source @ -No Did you review nursing and triage notes (agree or disagree)? Why? @ -I reviewed and agree with nursing and triage notes Were old charts reviewed (outside hosp., previous admission, EMS record, old EKG, old radiological studies, urgent care reports/EKG's, long term records)? Report findings @ -No old charts were reviewed Differential Diagnosis (chest pain, altered mental status, abdominal pain women, abdominal pain men, vaginal bleeding, musculoskeletal, weakness, fever, dyspnea, syncope, headache, dizziness, GI bleed, back pain, seizure, CVA, palpatations, mental health)? @ -Differential Weakness: Hypoglycemia, shock, sepsis, hyponatremia, anemia, infection, AR, ETOH, adverse medicine reaction, overdose, stroke, this is not meant to be an all-inclusive list. EKG interpreted by me (3pts min.). @ -See above X-rays interpreted by me (1pt min.). @ -None done CT interpreted by me (1pt min.). @ -None done U/S interpreted by me (1pt. min.). @ -None done What testing was considered but not performed or refused? (CT, X-rays, U/S, labs)? Why? @ -None What meds were considered but not given or refused? Why? @ -None Was smoking cessation discussed for >3mins.? @ -No Were there social determinants of health that impacted care today? How? (Homelessness, low income, unemployed, alcoholism, drug addiction, transportation, low edu. Level, literacy, decrease access to med. care, halfway, rehab)? @ -No Was there de-escalation of care discussed even if they declined (Discuss DNR or withdrawal of care, Hospice)? DNR status @ -No What co-morbidities impacted this encounter? (DM, HTN, Smoking, COPD, CAD, Cancer, CVA, ARF, Chemo, Hep., AIDS, mental health diagnosis, sleep apnea, morbid obesity)? @ -History of thyroidectomy Was patient admitted / discharged? Hospital course, mention meds given and route, prescriptions, significant lab abnormalities, going to OR and other pertinent info. @ -64-year-old female presents emergency department for abnormal outpatient lab. Patient hypercalcemic. Vital signs upon arrival shows bradycardia. Laboratory evaluation obtained. Hypokalemia of 2.7, calcium of 15.9 with ionized calcium 8.1. Elevated renal function creatinine of 2.44 and BUN of 30. Rest of labs within acceptable limits. Patient given large amounts of IV fluids. Will be admitted consultation to nephrology. Did you discuss the management of the patient with other professionals (professionals i.e. , PA, NITROGLYCERIN SUPERVISOR, lab, RT, psych nurse, director social welfare, gate keeper, teacher, hospital admissions officer, case finisher)? Give summary @ -Case discussed with hospitalist for admission. Case discussed with Dr. Delgado of nephrology recommends patient be given calcitonin and zoledronic acid. Was critical care preformed (if so, how long)? @ -Yes, 33 minutes for treatment of critical hypercalcemia with associated cardiac affect Undiagnosed new problem with uncertain prognosis? @ -No Drug Therapy requiring intensive monitoring for toxicity (Heparin, Nitro, Insulin, Cardizem)? @ -No Were any procedures done? @ -No Diagnosis/symptom? Acute, or Chronic, or Acute on Chronic? Uncomplicated (without systemic symptoms) or Complicated (systemic symptoms)? @ -Hypercalcemia Side effects of treatment? @ -No Exacerbation, Progression, or Severe Exacerbation? @ -No Poses a threat to life or bodily function? How? (Chest pain, USA, AR, pneumonia, PE, COPD, DKA, ARF, appy, cholecystitis, CVA, Diverticulitis, Homicidal, Suicidal, threat to staff... and all critical care pts) @ -yes (Param Lucas) - Lab Data Lab Results 04/24/24 04/24/24 Range/Units 17:42 17:42 WBC 8.5 (3.8-10.6) k/uL RBC 4.00 (3.80-5.40) m/uL Hgb 12.6 (11.4-16.0) gm/dL Hct 37.1 (34.0-46.0) % MCV 92.9 (80.0-100.0) fL MCH 31.6 (25.0-35.0) pg MCHC 34.0 (31.0-37.0) g/dL RDW 12.1 (11.5-15.5) % Plt Count 298 (150-450) k/uL MPV 7.5 Neutrophils % 56 % Lymphocytes % 36 % Monocytes % 4 % Eosinophils % 2 % Basophils % 1 % Neutrophils # 4.8 (1.3-7.7) k/uL Lymphocytes # 3.0 (1.0-4.8) k/uL Monocytes # 0.4 (0-1.0) k/uL Eosinophils # 0.2 (0-0.7) k/uL Basophils # 0.1 (0-0.2) k/uL Sodium 141 (137-145) mmol/L Potassium 2.7 L* (3.5-5.1) mmol/L Chloride 104 (98-107) mmol/L Carbon Dioxide 30 (22-30) mmol/L Anion Gap 7 mmol/L BUN 30 H (7-17) mg/dL Creatinine 2.44 H (0.52-1.04) mg/dL Est GFR (CKD-EPI)AfAm 23 (>60 ml/min/1.73 sqM) Est GFR (CKD-EPI)NonAf 20 (>60 ml/min/1.73 sqM) Glucose 100 H (74-99) mg/dL Calcium 15.9 H* (8.4-10.2) mg/dL Ionized Calcium Shae 8.1 H* (4.5-5.3) mg/dL Phosphorus 3.9 (2.5-4.5) mg/dL Magnesium 2.0 (1.6-2.3) mg/dL Total Bilirubin 0.6 (0.2-1.3) mg/dL AST 20 (14-36) U/L ALT 13 (4-34) U/L Alkaline Phosphatase 44 (38-126) U/L Total Protein 7.2 (6.3-8.2) g/dL Albumin 4.5 (3.5-5.0) g/dL Lipase 206 (23-300) U/L Disposition <Ngozi Kohler - Last Filed: 04/24/24 17:24> Decision Time: 19:30 <Param Lucas - Last Filed: 04/24/24 19:34> Clinical Impression: Hypercalcemia Disposition: ADMITTED IP TO THIS HOSP Condition: Fair Referrals: Lola Mcgowan [Primary Care Provider] - 1-2 days
[2024-04-24 17:58] LABS: Basophils # (A) 0.1 k/uL (0-0.2); Basophils % (A) 1 %; Eosinophils # (A) 0.2 k/uL (0-0.7); Eosinophils % (A) 2 %; HCT 37.1 % (34.0-46.0); HGB 12.6 gm/dL (11.4-16.0); Lymphocytes % (A) 36 %; MCH 31.6 pg (25.0-35.0); MCV 92.9 fL (80.0-100.0); Mean Platelet Volume 7.5; Monocytes # (A) 0.4 k/uL (0-1.0); Monocytes % (A) 4 %; Neutrophils # (A) 4.8 k/uL (1.3-7.7); Neutrophils % (A) 56 %; Platelet Count 298 k/uL (150-450); RDW 12.1 % (11.5-15.5); WBC 8.5 k/uL (3.8-10.6)
[2024-04-24 18:21] LABS: ALT 13 U/L (4-34); AST 20 U/L (14-36); African American GFR (CKD) 23 (>60 ml/min/1.73 sqM); Albumin 4.5 g/dL (3.5-5.0); Alkaline Phosphatase 44 U/L (38-126); Anion Gap 7 mmol/L; Blood Urea Nitrogen 30 mg/dL (7-17); Carbon Dioxide 30 mmol/L (22-30); Chloride 104 mmol/L (98-107); Glucose 100 mg/dL (74-99); Lipase 206 U/L (23-300); Non-African American GFR(CKD) 20 (>60 ml/min/1.73 sqM); Phosphorus 3.9 mg/dL (2.5-4.5); Sodium 141 mmol/L (137-145); Total Bilirubin 0.6 mg/dL (0.2-1.3); Total Protein 7.2 g/dL (6.3-8.2)
[2024-04-24 18:30] LABS: Ionized Calcium 8.1 mg/dL (4.5-5.3)
[2024-04-24 18:32] LABS: Calcium 15.9 mg/dL (8.4-10.2); Potassium 2.7 mmol/L (3.5-5.1)
[2024-04-24] MEDS ORDERED: NALOXONE 0.4 MG/ML 1 ML VIAL IV PRN (19:24)
[2024-04-24] MEDS: SODIUM CHLORIDE 0.9% 1,000 ML IV STA ×2 (20:07→20:08)
[2024-04-24] MEDS: POTASSIUM CHLORIDE 40 MEQ in WATER FOR INJECTION 1 100ML.BAG IVPB STA (20:08)
[2024-04-24] MEDS: CALCITONIN INJ 200 UNIT/ML (MDV) VIAL IM ONE (20:55)
[2024-04-24] MEDS: NICOTINE 21MG/24HR PATCH TRANSDERM STA (21:13)
[2024-04-24] MEDS: ZOLEDRONIC ACID 4 MG in SODIUM CHLORIDE 0.9% 100 ML IV ONE (21:27)
[2024-04-25] MEDS: PANTOPRAZOLE 40 MG/10 ML VIAL IVP STA (00:17)
[2024-04-25 00:45] LABS: Appearance,Urine Clear (Clear); Bilirubin,Urine Negative (Negative); Blood,Urine Negative (Negative); Color,Urine Colorless; Glucose,Urine (UA) Negative (Negative); Ketones,Urine Negative (Negative); Leukocyte Esterase,Urine Negative (Negative); Nitrite,Urine Negative (Negative); Protein,Urine Negative (Negative); Specific Gravity,Urine 1.004 (1.001-1.035); Urobilinogen,Urine <2.0 mg/dL (<2.0)
[2024-04-25] MEDS ORDERED: ALBUTEROL NEBULIZED 2.5 MG/3 ML INHALATION PRN (09:18)
[2024-04-25 10:07] LABS: BUN/Creat Ratio 11.09 Ratio (12.00-20.00); Blood Urea Nitrogen 25.5 mg/dL (9.0-27.0); Calcium 14.3 mg/dL (8.7-10.3); Carbon Dioxide 22.9 mmol/L (21.6-31.8); Chloride 108 mmol/L (96-109); Glucose 137 mg/dL (70-110); Potassium 3.3 mmol/L (3.5-5.5); Sodium 146 mmol/L (135-145)
[2024-04-25] MEDS ORDERED: Potassium Replacement Protocol 1 EACH MISC MISCELLANE PRN (10:53)
[2024-04-25 11:17] LABS: Magnesium 1.9 mg/dL (1.5-2.4)
[2024-04-25] MEDS: CALCITONIN INJ 200 UNIT/ML (MDV) VIAL IM ONE (11:54)
[2024-04-25] MEDS: LEVOTHYROXINE 88 MCG TAB PO SCH (11:54)
[2024-04-25] MEDS: POTASSIUM CHLORIDE ER 20 MEQ TAB.ER PO SCH (11:55)
[2024-04-25] MEDS ORDERED: CALCITONIN INJ 200 UNIT/ML (MDV) VIAL IM ONE (12:11)
[2024-04-25 12:49] LABS: ALT 11 U/L (8-44); AST 19 U/L (13-35); Albumin 4.4 g/dL (3.8-4.9); Albumin/Globulin Ratio 1.76 Ratio (1.60-3.17); Alkaline Phosphatase 48 U/L (41-126); BUN/Creat Ratio 11.13 Ratio (12.00-20.00); Blood Urea Nitrogen 25.6 mg/dL (9.0-27.0); Calcium 13.4 mg/dL (8.7-10.3); Carbon Dioxide 24.2 mmol/L (21.6-31.8); Chloride 106 mmol/L (96-109); Globulin 2.5 g/dL (1.6-3.3); Glucose 126 mg/dL (70-110); Potassium 3.6 mmol/L (3.5-5.5); Sodium 143 mmol/L (135-145); Total Bilirubin 0.5 mg/dL (0.3-1.2); Total Protein 6.9 g/dL (6.2-8.2)
[2024-04-25] MEDS: FLUTICASONE NASAL 50MCG/SPRAY 16GM BTL EA NOSTRIL SCH (13:00)
[2024-04-25] MEDS: SODIUM CHLORIDE 0.9% 1,000 ML IV SCH (13:01)
--- NOTE | 2024-04-25 13:56 | P.NPCON ---
History of Present Illness - Reason for Consult Consult date: 04/25/24 acute renal failure - History of Present Illness Reason for consult: acute kidney injury and hypercalcemia Patient is 64-year-old female that is a consult for elevated calcium levels and elevated creatinine. She was admitted due to elevated calcium levels found on her blood work done by her PCP. She reports during encounter with PCP, she was experiencing balance problems, body aches. She also reports associated polyu gil. She denies hematuria, dysuria, flank pain, tremors, weakness, headaches, active cancer, or NSAID use. She has history of and total thyroidectomy with total parathyroidectomy (both in 2018), Leslie's thyroiditis, right breast removal due to breast cancer. She takes levothyroxine 88mcg OD, indapamide 1.2mg ID, D3 2000, Calcitriol 0.5mcg BID, Tums BID, and Famotidine BID. EKG show sinus bradycardia with rate of 48. No ST-T changes with good R wave progression. QRS normal at 114ms. QTc normal at 445. Labs show Hgb 12.6 WBC 8.6 K low at 2.7 Ca critically elevated at 15.9 Cr elevated at 2.44. Past Medical History Past Medical History: Cancer Additional Past Medical History / Comment(s): OB history: 3 vaginal deliveries History of Any Multi-Drug Resistant Organisms: None Reported Past Surgical History: Tubal Ligation Additional Past Surgical History / Comment(s): right mastectomy 2002, with implants to both sides 2003,HERNIA-LT ING A CHILD, CORNEAL TRANSPLANT RT EYE 1997, ALL BOTTOM TEETH REMOVED 10/2014 Past Anesthesia/Blood Transfusion Reactions: Postoperative Nausea & Vomiting (PONV) Additional Past Anesthesia/Blood Transfusion Reaction / Comment(s): PONV WITH TEETH EXTRACTIONS 10/2014 Past Psychological History: No Psychological Hx Reported Past Alcohol Use History: None Reported Additional Past Alcohol Use History / Comment(s): STARTED SMOKING @ AGE 17(1976) -1PPD Past Drug Use History: None Reported - Past Family History Mother Family Medical History: Cancer Additional Family Medical History / Comment(s): BREAST CA Father Family Medical History: Cancer Additional Family Medical History / Comment(s): PROSTATE Medications and Allergies Home Medications Medication Instructions Recorded Confirmed Type Albuterol Inhaler [Ventolin Hfa 1 - 2 puff INHALATION RT-Q6H PRN 04/24/24 04/24/24 History Inhaler] Calcium Carbonate [Tums] 1,000 mg PO HS 04/24/24 04/24/24 History Cetirizine HCl [Zyrtec] 10 mg PO HS 04/24/24 04/24/24 History Cholecalciferol (Vitamin D3) 50 mcg PO HS 04/24/24 04/24/24 History [Vitamin D3 (50 Mcg = 2000 Iu)] Famotidine [Pepcid] 20 mg PO BID 04/24/24 04/24/24 History Fluticasone Nasal [place] [Flonase 1 spray EA NOSTRIL DAILY@1200 04/24/24 04/24/24 History Nasal [place]] Indapamide [Lozol] 1.25 mg PO DAILY 04/24/24 04/24/24 History Levothyroxine Sodium [Synthroid] 88 mcg PO DAILY 04/24/24 04/24/24 History Vitamin B Complex/Vitamin C 1 tab PO HS 04/24/24 04/24/24 History calcitrioL [Rocaltrol] 1 mcg PO DAILY 04/24/24 04/24/24 History Allergies Allergy/AdvReac Type Severity Reaction Status Date / Time No Known Allergies Allergy Verified 04/24/24 20:04 Physical Exam Vitals: Vital Signs Temp Pulse Pulse Resp BP BP Pulse Ox 04/25/24 08:00 98.2 F 55 L 18 143/58 96 04/25/24 06:02 98.2 F 53 L 17 145/78 96 04/25/24 04:49 57 L 18 159/84 97 04/24/24 22:58 58 L 18 154/91 94 L 04/24/24 17:26 98.2 F 56 L 18 152/73 98 Intake and Output 04/24/24 04/25/24 04/25/24 22:59 06:59 14:59 Other: Weight 75.75 kg Physical examination: Vital signs reviewed General: non toxic, no distress, appears at stated age, normal weight Head: atraumatic, normocephalic, symmetric Cardiovascular: S1S2 reg, no murmur Lungs: CTA bilateral, no rhonchi, no rales, no accessory muscle use Abdominal: soft, nontender to palpation, no guarding Ext: muscle strength 5 out of 5 in all 4 extremities grossly, no gross muscle atrophy, no contractures, positive dorsalis pedis pulse bilateral, +2 bilateral pitting edema Neuro: CN II-XI grossly intact, no gross focal neuro deficits Psych: Alert, oriented, appropriate affect and mood Results - Lab Results Most recent lab results Calcium 15.9 mg/dL (8.4-10.2) H* 04/24/24 17:42 Phosphorus 3.9 mg/dL (2.5-4.5) 04/24/24 17:42 Magnesium 2.0 mg/dL (1.6-2.3) 04/24/24 17:42 04/24/24 17:42 04/25/24 07:48 Assessment and Plan Assessment: -SERGIO in the setting of calcium induced ATN, hypovolemia, worsened with thiazide diuretic use. Cr baseline 0.6-0.8 now at 2.3. UA unremarkable. -Hypercalcemia secondary to thiazide use, vitamin d supplementation, and milk alkali syndrome (Taking tums(. Calcium initially at 15.9 now at 14.3 -Hypokalemia due to dehydration. K initially at 2.7 now at 3.3. -Leslie's thyroiditis status post total thyroidectomy with parathyroidectomy. Managed with synthroid Plan: Hold indapamide, calcium carbonate (Tums) and Vit D supplementation. IVF 0/9% NaCl 150 cc/hr. Replace potassium. Status post 1 dose of calcitonin IM and Zometa. Will give 1 more calcitonin 400 units IM dose today Serum TSH, ZEKE, urine electrophoresis, protein electrophoresis ordered. Awaiting results CMP CBC, Mag, and PTHrP in the A.M. Avoid nephrotoxic agents. Thank you for this consult. We will follow patient along with you. I have seen examined patient with resident and agree [facility] A&P as written.
[2024-04-25] MEDS ORDERED: ALPRAZolam 0.25 MG TAB PO PRN (14:04)
--- NOTE | 2024-04-25 14:28 | XR ---
EXAMINATION TYPE: XR chest 1V portable DATE OF EXAM: 04/25/2024 COMPARISON: 07/01/2018 INDICATION: CHF TECHNIQUE: Single frontal view of the chest is obtained. FINDINGS: The heart size is normal. The pulmonary vasculature is normal. The lungs are clear. Breast prosthesis present. IMPRESSION: 1. No acute pulmonary process. [facility] Adenike Mejia, , 04/25/2024 2:25 PM
[2024-04-25] MEDS: ONDANSETRON 4 MG/2 ML VIAL IVP PRN (15:07)
[2024-04-25] MEDS: NICOTINE 14MG/24HR PATCH TRANSDERM SCH (16:09)
[2024-04-25] MEDS: PANTOPRAZOLE 40 MG TABLET PO SCH (16:09)
[2024-04-25] MEDS: LORATADINE 10 MG TAB PO SCH (19:49)
[2024-04-26 09:33] LABS: Basophils # (A) 0.04 X 10*3/uL (0.00-0.10); Basophils % (A) 0.5 %; Eosinophils # (A) 0.09 X 10*3/uL (0.04-0.35); HCT 28.6 % (37.2-46.3); HGB 9.9 g/dL (12.0-15.0); Lymphocytes # (A) 2.57 X 10*3/uL (0.90-5.00); Lymphocytes % (A) 29.2 %; MCH 31.9 pg (27.0-32.0); MCHC 34.6 g/dL (32.0-37.0); MCV 92.3 FL (80.0-97.0); Mean Platelet Volume 10.7 FL (9.5-12.2); Monocytes # (A) 0.67 X 10*3/uL (0.20-1.00); Monocytes % (A) 7.6 %; NRBC Per 100 WBC 0 X 10*3/uL (0.00-0.01); Neutrophils % (A) 61.5 %; Platelet Count 226 X 10*3/uL (140-440); RDW 12.4 % (11.5-14.5); WBC 8.79 X 10*3/uL (4.50-10.00)
[2024-04-26 09:34] LABS: Magnesium 1.5 mg/dL (1.5-2.4)
[2024-04-26 10:46] LABS: ALT 10 U/L (8-44); AST 16 U/L (13-35); Albumin 3.8 g/dL (3.8-4.9); Alkaline Phosphatase 39 U/L (41-126); BUN/Creat Ratio 9.45 Ratio (12.00-20.00); Blood Urea Nitrogen 18.9 mg/dL (9.0-27.0); Calcium 10.8 mg/dL (8.7-10.3); Carbon Dioxide 22.4 mmol/L (21.6-31.8); Chloride 110 mmol/L (96-109); Glucose 94 mg/dL (70-110); Potassium 3.1 mmol/L (3.5-5.5); Sodium 143 mmol/L (135-145); Total Bilirubin 0.4 mg/dL (0.3-1.2); Total Protein 5.8 g/dL (6.2-8.2)
--- NOTE | 2024-04-26 11:27 | P.PN ---
Subjective Progress Note Date: 04/26/24 Patient seen and examined at bedside. Had an episode of bradycardia overnight heart rate in 30s while patient was asleep. Had 1 episode of vomiting watery with undigested food. Denies weakness, tremors, chest pain, abdominal pain. Calcium at 13.4 now at 10.8. Potassium was at 3.3 then increased to 3.6 now at 3.1. Mag at 1.5 Creatinine was at 3.3 --> 2.44 --> 2.3 --> now at 2. PTH at 3.9 TSH 2.51 Vit D 73.3. Protein electrophoresis 7.0 Objective - Vital Signs Vital signs: Vital Signs Temp 98.1 F 04/26/24 07:17 Pulse 48 L 04/26/24 07:17 Resp 16 04/26/24 07:17 BP 130/65 04/26/24 07:17 Pulse Ox 96 04/26/24 07:17 FiO2 Intake & Output 04/25/24 04/26/24 04/26/24 18:59 06:59 18:59 Intake Total 1080 2278 Output Total 200 Balance 1080 2078 Weight 75.75 kg Intake: Intake, IV Titration 1800 Amount Sodium Chloride 0.9% 1, 1800 000 ml @ 150 mls/hr IV . Q6H40M [facility] Rx#:[id number] Oral 1080 478 Output: Emesis 200 Other: # Voids 3 2 - Exam Physical examination: Vital signs reviewed General: non toxic, no distress, appears at stated age, normal weight Head: atraumatic, normocephalic, symmetric Mouth: no lip lesion, mucus membranes moist Cardiovascular: S1S2 bradycardic, no murmur Lungs: CTA bilateral, no rhonchi, no rales, no accessory muscle use Abdominal: soft, nontender to palpation, no guarding Ext: muscle strength 5 out of 5 in all 4 extremities grossly, no gross muscle a trophy, no contractures, positive dorsalis pedis pulse bilateral, no edema Neuro: no gross focal neuro deficits Psych: Alert, oriented, appropriate affect and mood - Labs CBC & Chem 7: 04/26/24 05:01 04/26/24 05:01 Labs: Abnormal Lab Results - Last 24 Hours (Table) 04/25/24 04/25/24 04/25/24 Range/Units 00:30 00:30 07:48 Sodium 146 H (135-145) mmol/L Potassium 3.3 L (3.5-5.5) mmol/L Anion Gap 15.10 H 12.80 H (4.00-12.00) mmol/L Creatinine 2.3 H 2.3 H (0.6-1.5) mg/dL Est GFR (CKD-EPI) 23 L 23 L (>=60) BUN/Creatinine Ratio 11.09 L 11.13 L (12.00-20.00) Ratio Glucose 137 H 126 H (70-110) mg/dL Calcium 14.3 A* 13.4 A* (8.7-10.3) mg/dL PTH Intact 3.9 L (14.0-72.0) pg/mL Assessment and Plan Assessment: -SERGIO in the setting of calcium induced ATN secondary to diuretic use and dehydration. Cr baseline 0.6-0.8 now at 2.3 --> 2. UA unremarkable. 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 Calcium initially at 15.9 --> 14.3 --> 10.8 -Hypokalemia due to dehydration. K initially at 2.7 --> 3.3 --> 3.1. -Leslie's thyroiditis status post total thyroidectomy with parathyroidectomy. Managed with synthroid Plan: Hold indapamide, calcium carbonate (Tums) and Vit D supplementation. Decrease IVF 0/9% NaCl 100 cc/hr. Status post 2 dose of calcitonin IM and 1 dose Zometa. Magnesium 2g IVPB Potassium 60mEq IV for repletion Serum ZEKE, urine electrophoresis ordered. Awaiting results CMP CBC, and Mag the A.M. Avoid nephrotoxic agents. I have seen and examined the patient with the resident and agree with assessment and plan as written. Calcium level trending down. Renal function improving.
[2024-04-26] MEDS: MAGNESIUM SULFATE-D5W PMX 1 GM in DEXTROSE/WATER 1 100ML.BAG IVPB SCH (11:51)
[2024-04-26] MEDS: SODIUM CHLORIDE 0.9% 1,000 ML IV SCH (11:51)
[2024-04-26 13:21] LABS: Angiotensin-1 Converting Enz. 19 U/L (8-52)
[2024-04-26] MEDS: POTASSIUM CHLORIDE 20 MEQ in WATER FOR INJECTION 1 100ML.BAG IVPB SCH (14:47)
[2024-04-26 19:44] LABS: Vitamin D, 1, 25-Dihydroxy 42 pg/mL (20 - 79)
[2024-04-27] MEDS: POTASSIUM CHLORIDE ER 20 MEQ TAB.ER PO SCH ×3 (02:49→13:44)
[2024-04-27] MEDS: POTASSIUM CHLORIDE ER 20 MEQ TAB.ER PO STA (05:30)
--- NOTE | 2024-04-27 06:07 | P.PN ---
Subjective Progress Note Date: 04/26/24 This is a pleasant 64-year-old female who was called by her primary care provider for abnormal labs and instructed to come to the ER. Patient was admitted for hypercalcemia along with SERGIO with nephrology following. Patient maintained on fluid hydration and calcium is improving currently at 10 and init ially was above 14 on admission. Patient does have history of breast cancer status postmastectomy in 2002. Patient follows with endocrine in the outpatient setting and had been prescribed calcium supplements along with vitamin C and D and noted to have hypercalcemia. Patient also admitted with acute kidney injury and dehydration. Replace electrolytes per protocol as potassium and magnesium are slightly low. Will follow-up with repeat labs. Encouraged increase activity as tolerated. Review of systems: Constitutional: No reports of fatigue, fever, or chills Cardiovascular: No reports of chest pain or palpitations Respiratory: No reports of shortness of breath or cough GI: reports of occasional nausea, no reports of vomiting, no diarrhea currently : No reports of dysuria or retention Neurovascular: reports of generalized weakness All medications have been reviewed PHYSICAL EXAMINATION: GENERAL: The patient is alert and oriented x4, Well developed, well nourished. HEENT: Pupils are round and equally reacting to light. EOMI. no scleral icterus. No conjunctival pallor. Normocephalic, atraumatic. No pharyngeal erythema. No thyromegaly. CARDIOVASCULAR: S1 and S2 muffled PULMONARY: diminished breath sounds bilaterally with no wheezing or rhonchi noted. ABDOMEN: soft. Nontender on exam.non-distended, normoactive bowel sounds. No palpable organomegaly. MUSCULOSKELETAL: No joint swelling or deformity. EXTREMITIES: No cyanosis, clubbing, or pedal edema. NEUROLOGICAL: Gross neurological examination did not reveal any focal deficits. Diffuse weakness SKIN: No rashes. Assessment: Hypercalcemia, calcium was 15.9 on admission Acute kidney injury, likely ATN and hypovolemic due to acute dehydration. Also worsened with hydrochlorothiazide and hypercalcemia Hypokalemia secondary to dehydration History of Leslie's thyroiditis, status post total thyroidectomy and total parathyroidectomy Generalized weakness likely secondary to dehydration GI prophylaxis DVT prophylaxis Full code Plan: Recommend to continue with current medications and management with nephrology following. Patient maintained on gentle hydration and calcium correction and calcium is improving currently just above 10 and will follow-up with repeat labs Potassium and magnesium are low and being replaced per protocol and will follow- up with repeat labs. Encouraged oral intake with small frequent meals Encouraged increase activity as tolerated and PT/OT therapy evaluation Will follow-up on labs in the a.m. and discuss further with nephrology regarding discharge planning. Possible discharge in the next 24 to 48 hours The impression and plan of care has been dictated by Kathy Herring, nurse practitioner as directed. Dr. Hieu MD I have performed a history and examination and MDM of this patient, discussed the same with the dictator, and agree with the dictator's assessment and plan as written ,documented as a scribe. Based on total visit time, I have performed more than 50% of the visit. Any additional findings or plans will be noted. Objective - Vital Signs Vital signs: Vital Signs Temp 98.1 F 04/26/24 07:17 Pulse 48 L 04/26/24 07:17 Resp 16 04/26/24 07:17 BP 130/65 04/26/24 07:17 Pulse Ox 96 04/26/24 07:17 FiO2 Intake & Output 04/25/24 04/26/24 04/26/24 18:59 06:59 18:59 Intake Total 1080 2278 Output Total 200 Balance 1080 2078 Weight 75.75 kg Intake: Intake, IV Titration 1800 Amount Sodium Chloride 0.9% 1, 1800 000 ml @ 150 mls/hr IV . Q6H40M [facility] Rx#:[id number] Oral 1080 478 Output: Emesis 200 Other: # Voids 3 2 - Labs CBC & Chem 7: 04/26/24 05:01 04/27/24 00:16 Labs: Abnormal Lab Results - Last 24 Hours (Table) 04/26/24 04/26/24 Range/Units 05:01 05:01 RBC 3.10 L (4.10-5.20) X 10*6/uL Hgb 9.9 L (12.0-15.0) g/dL Hct 28.6 L (37.2-46.3) % Potassium 3.1 L (3.5-5.5) mmol/L Chloride 110 H (96-109) mmol/L Creatinine 2.0 H (0.6-1.5) mg/dL Est GFR (CKD-EPI) 27 L (>=60) BUN/Creatinine Ratio 9.45 L (12.00-20.00) Ratio Calcium 10.8 H (8.7-10.3) mg/dL Alkaline Phosphatase 39 L (41-126) U/L Total Protein 5.8 L (6.2-8.2) g/dL
[2024-04-27 08:26] LABS: Basophils # (A) 0.03 X 10*3/uL (0.00-0.10); Basophils % (A) 0.3 %; Eosinophils # (A) 0.09 X 10*3/uL (0.04-0.35); Eosinophils % (A) 0.9 %; HCT 27.4 % (37.2-46.3); HGB 9.5 g/dL (12.0-15.0); Lymphocytes # (A) 2.95 X 10*3/uL (0.90-5.00); Lymphocytes % (A) 30.6 %; MCHC 34.7 g/dL (32.0-37.0); MCV 95.1 FL (80.0-97.0); Mean Platelet Volume 10.9 FL (9.5-12.2); Monocytes # (A) 0.71 X 10*3/uL (0.20-1.00); Monocytes % (A) 7.4 %; NRBC Per 100 WBC 0 X 10*3/uL (0.00-0.01); Neutrophils # (A) 5.82 X 10*3/uL (1.80-7.70); Neutrophils % (A) 60.5 %; Platelet Count 196 X 10*3/uL (140-440); RBC 2.88 X 10*6/uL (4.10-5.20); RDW 12.3 % (11.5-14.5); WBC 9.63 X 10*3/uL (4.50-10.00)
[2024-04-27 09:36] LABS: Magnesium 1.8 mg/dL (1.5-2.4)
[2024-04-27 11:01] LABS: ALT 17 U/L (8-44); AST 24 U/L (13-35); Albumin 3.6 g/dL (3.8-4.9); Albumin/Globulin Ratio 1.89 Ratio (1.60-3.17); Alkaline Phosphatase 40 U/L (41-126); BUN/Creat Ratio 8.22 Ratio (12.00-20.00); Blood Urea Nitrogen 14.8 mg/dL (9.0-27.0); Calcium 9.4 mg/dL (8.7-10.3); Carbon Dioxide 19.7 mmol/L (21.6-31.8); Chloride 110 mmol/L (96-109); Globulin 1.9 g/dL (1.6-3.3); Glucose 94 mg/dL (70-110); Potassium 3.2 mmol/L (3.5-5.5); Sodium 141 mmol/L (135-145); Total Bilirubin 0.5 mg/dL (0.3-1.2); Total Protein 5.5 g/dL (6.2-8.2)
--- NOTE | 2024-04-27 11:07 | P.PN ---
Subjective Progress Note Date: 04/27/24 Patient seen and examined at bedside. No acute events overnight. Denies weakness, tremors, chest pain, abdominal pain. Calcium at 13.4 --> 10.8 --> 9.4. Potassium was at 3.3 --> 3.6 --> 3.1. --> 2.9 overnight after repletion. Patient given 60mEq for correction --> 3.2 --> 3.4. Mag 1.5 --> 1.8 creatinine was at 3.3 --> 2.44 --> 2.3 --> 2 --> 1.8. Protein electrophoresis 7.0 negative for monoclonal Abs. ZEKE normal at 19 Objective - Vital Signs Vital signs: Vital Signs Temp 98.3 F 04/27/24 07:24 Pulse 56 L 04/27/24 07:24 Resp 19 04/27/24 07:24 BP 120/71 04/27/24 07:24 Pulse Ox 96 04/27/24 07:24 FiO2 Intake & Output 04/26/24 04/27/24 04/27/24 18:59 06:59 18:59 Intake Total 1640 Balance 1640 Intake: Intake, IV Titration 1100 Amount Magnesium Sulfate-D5w Pmx 200 1 gm In Dextrose/Water 1 100ml.bag @ 100 mls/hr IVPB Q1H [facility] Rx#: [id number] Potassium Chloride 20 meq 200 In Water For Injection 1 100ml.bag @ 50 mls/hr IVPB Q2H [facility] Rx#: [id number] Sodium Chloride 0.9% 1, 100 000 ml @ 100 mls/hr IV . Q10H [facility] Rx#:[id number] Sodium Chloride 0.9% 1, 600 000 ml @ 150 mls/hr IV . Q6H40M [facility] Rx#:[id number] Oral 540 Other: # Voids 4 3 - Exam Physical examination: Vital signs reviewed General: non toxic, no distress, appears at stated age Head: atraumatic, normocephalic, symmetric Mouth: no lip lesion, mucus membranes moist Cardiovascular: S1S2 bradycardic, no murmur Lungs: CTA bilateral, no rhonchi, no rales, no accessory muscle use Abdominal: soft, nontender to palpation, no guarding Ext: muscle strength 5 out of 5 in all 4 extremities grossly, no gross muscle atrophy, no contractures, positive dorsalis pedis pulse bilateral, no edema Neuro: no gross focal neuro deficits Psych: Alert, oriented, appropriate affect and mood - Labs CBC & Chem 7: 04/27/24 05:01 04/27/24 12:19 Labs: Abnormal Lab Results - Last 24 Hours (Table) 04/26/24 04/26/24 04/27/24 Range/Units 05:01 05:01 00:16 RBC 3.10 L (4.10-5.20) X 10*6/uL Hgb 9.9 L (12.0-15.0) g/dL Hct 28.6 L (37.2-46.3) % MCH (27.0-32.0) pg Potassium 3.1 L 2.9 L (3.5-5.5) mmol/L Chloride 110 H (96-109) mmol/L Creatinine 2.0 H (0.6-1.5) mg/dL Est GFR (CKD-EPI) 27 L (>=60) BUN/Creatinine Ratio 9.45 L (12.00-20.00) Ratio Calcium 10.8 H (8.7-10.3) mg/dL Alkaline Phosphatase 39 L (41-126) U/L Total Protein 5.8 L (6.2-8.2) g/dL 04/27/24 04/27/24 Range/Units 05:01 07:17 RBC 2.88 L (4.10-5.20) X 10*6/uL Hgb 9.5 L (12.0-15.0) g/dL Hct 27.4 L (37.2-46.3) % MCH 33.0 H (27.0-32.0) pg Potassium 3.4 L (3.5-5.5) mmol/L Chloride (96-109) mmol/L Creatinine (0.6-1.5) mg/dL Est GFR (CKD-EPI) (>=60) BUN/Creatinine Ratio (12.00-20.00) Ratio Calcium (8.7-10.3) mg/dL Alkaline Phosphatase (41-126) U/L Total Protein (6.2-8.2) g/dL Assessment and Plan Assessment: -SERGIO in the setting of calcium induced ATN secondary to diuretic use and dehydration. Cr baseline 0.6-0.8 now at 2.3 --> 2 --> 1.8. UA unremarkable. 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 Calcium initially at 15.9 --> 14.3 --> 10.8 --> 9.4 -Hypokalemia due to dehydration. K initially at 2.7 --> 3.3 --> 3.1 --> 2.9 --> 3.2 --> 3.4 -Leslie's thyroiditis status post total thyroidectomy with parathyroidectomy. Managed with synthroid Plan: Hold indapamide, calcium carbonate (Tums) and Vit D supplementation. Decrease IVF 0/9% NaCl 75 cc/hr. Status post 2 dose of calcitonin IM and 1 dose Zometa. Potassium replacement per protocol urine electrophoresis ordered. Awaiting results CMP CBC, and Mag the A.M. Avoid nephrotoxic agents. I have seen and examined the patient with resident and agree with A&P as written.
[2024-04-27] MEDS: SODIUM CHLORIDE 0.9% 1,000 ML IV SCH (13:09)
--- NOTE | 2024-04-27 14:48 | HP ---
HISTORY AND PHYSICAL CHIEF COMPLAINT: Hypercalcemia. HISTORY OF PRESENT ILLNESS: This 64-year-old woman with a past medical history of multiple medical problems including nausea, vomiting, was taking calcium also. The patient also had thyroid issues as well. The lab in the outpatient showed hypercalcemia currently, calcium was 15.9. The patient also hypokalemia also. There is no history of fever, rigors, or chills at this time. PAST MEDICAL HISTORY: History of thyroid problems. Rest of the history and rest of the chart is also reviewed. MEDICATIONS: Rocaltrol, levothyroxine, cetirizine, and calcium. Dose and rest of medications noted. ALLERGIES: None. FAMILY HISTORY: History of breast cancer in the family. SOCIAL HISTORY: Smoking. REVIEW OF SYSTEM: Fourteen-point review of systems negative except as mentioned earlier. PHYSICAL EXAMINATION: VITAL SIGNS: Pulse is 55, blood pressure 143/58, and respirations 18. HEENT: Conjunctivae normal. NECK: No JVD. CARDIOVASCULAR: S1, S2. RESPIRATIONS: Breath sounds diminished at the bases. No rhonchi. No crackles. ABDOMEN: Soft. LEGS: No edema. NERVOUS SYSTEM: Nonfocal. SKIN: No ulcer, rash, bleeding. JOINTS: No active deforming arthropathy. LABORATORY DATA: Reviewed. ASSESSMENT: 1. Severe hypocalcemia, possibly iatrogenic and medication induced. 2. Hypothyroidism. 3. Hypokalemia. 4. History of gastroesophageal reflux disease. 5. History of nicotine dependence. RECOMMENDATIONS AND DISCUSSION: This 64-year-old woman, presented with multiple complex medical issues. We will monitor the patient closely. I would recommend vitamin D3 and also calcium supplementation. IV fluids. Zometa has been given 1 dose in the ER. Resume the home medications. Calcitonin was also given. Prognosis guarded because of multiple complex medical issues. Further recommendations to follow. adequately suppressed. Recommend to close followup in the outpatient setting with Endocrine. MMODL / IJN: [id number] /
[2024-04-27 15:53] LABS: Gamma Globulin 0.88 g/dL (0.70-1.50)
[2024-04-27] MEDS: TEMAZEPAM 15 MG CAP PO PRN (23:40)
--- NOTE | 2024-04-28 09:49 | P.PN ---
Subjective Progress Note Date: 04/27/24 This is a pleasant 64-year-old female who was called by her primary care provider for abnormal labs and instructed to come to the ER. Patient was admitted for hypercalcemia along with SERGIO with nephrology following. Patient maintained on fluid hydration and calcium is improving currently at 10 and init ially was above 14 on admission. Patient does have history of breast cancer status postmastectomy in 2002. Patient follows with endocrine in the outpatient setting and had been prescribed calcium supplements along with vitamin C and D and noted to have hypercalcemia. Patient also admitted with acute kidney injury and dehydration. Replace electrolytes per protocol as potassium and magnesium are slightly low. Will follow-up with repeat labs. Encouraged increase activity as tolerated. 04/27/2024 Patient is seen and evaluated in follow-up today and reports to feeling lethargic and unwell with not much of an appetite. Patient has not been eating very well and has been having occasional intermittent nausea although feels most likely due to the continuous potassium supplementation over the last 2 days. All calcium supplements including vitamin D have been placed on hold as well as her hydrochlorothiazide per nephrology as patient had SERGIO as well as significant hypercalcemia on admission. Calcium levels have improved and less than 9 today and will need to discuss further with nephrology regarding discharge planning and resuming some form of calcium until follow-up with Dr. 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 Patient also takes hydrochlorothiazide which is on hold and has been having some lower extremity swelling. Recommend compression stockings and/or Jose wrap from the toes up to the knees and elevating while at rest to aid in swelling as patient's kidney functions are somewhat improved although recommend to continue holding these diuretics at this time. Discussed with nephrology and will decrease the IV flow to 75 as well. Follow-up on repeat labs in the a.m. Review of systems: Constitutional: No reports of fatigue, fever, or chills Cardiovascular: No reports of chest pain or palpitations Respiratory: No reports of shortness of breath or cough GI: reports of occasional nausea, no reports of vomiting, no diarrhea currently : No reports of dysuria or retention Neurovascular: reports of generalized weakness lower extremity swelling along with upper extremities All medications have been reviewed PHYSICAL EXAMINATION: GENERAL: The patient is alert and oriented x4, Well developed, well nourished. Feels lethargic and exhausted as she reports did not sleep HEENT: Pupils are round and equally reacting to light. EOMI. no scleral icterus. No conjunctival pallor. Normocephalic, atraumatic. No pharyngeal erythema. No thyromegaly. CARDIOVASCULAR: S1 and S2 muffled PULMONARY: diminished breath sounds bilaterally with no wheezing or rhonchi noted. ABDOMEN: soft. Nontender on exam.non-distended, normoactive bowel sounds. No palpable organomegaly. MUSCULOSKELETAL: No joint swelling or deformity. EXTREMITIES: No cyanosis, clubbing, mild upper and lower bilateral extremity swelling noted, lower extremities are 1+ pitting NEUROLOGICAL: Gross neurological examination did not reveal any focal deficits. Diffuse weakness SKIN: No rashes. Assessment: Hypercalcemia, calcium was 15.9 on admission, trending down and all calcium supplements including vitamin D and hydrochlorothiazide are on hold Acute kidney injury, likely ATN and hypovolemic due to acute dehydration. Also worsened with hydrochlorothiazide and hypercalcemia Hypokalemia secondary to dehydration, improving after replacement, recommend daily supplementation History of Leslie's thyroiditis, status post total thyroidectomy and total parathyroidectomy maintained on levothyroxine Generalized weakness likely secondary to dehydration GI prophylaxis DVT prophylaxis Full code Plan: Recommend to continue with current medications and management with nephrology following. Patient maintained on gentle hydration and calcium correction and calcium is improving currently just above 9 today and will follow-up with repeat labs Patient is experiencing some lower extremity and upper extremity swelling most likely secondary to mild volume overload and will decrease the flow of normal saline and also recommend Joes wraps or compression stockings to lower extremities and elevating while at rest. Potassium and magnesium are low and being replaced per protocol and will follow- up with repeat labs. Will add daily supplementation of potassium Encouraged oral intake with small frequent meals. Patient does not have much of an appetite and encouraged continued intake Encouraged increase activity as tolerated and PT/OT therapy evaluation Will follow-up on labs in the a.m. and discuss further with nephrology regarding discharge planning. Possible discharge in the next 24 hours The impression and plan of care has been dictated by Kathy Herring, nurse practitioner as directed. Dr. Philipp MD I have performed a history and examination and MDM of this patient, discussed the same with the dictator, and agree with the dictator's assessment and plan as written ,documented as a scribe. Based on total visit time, I have performed more than 50% of the visit. Any additional findings or plans will be noted. Objective - Vital Signs Vital signs: Vital Signs Temp 98.3 F 04/27/24 07:24 Pulse 56 L 04/27/24 07:24 Resp 19 04/27/24 07:24 BP 120/71 04/27/24 07:24 Pulse Ox 96 04/27/24 07:24 FiO2 Intake & Output 04/26/24 04/27/24 04/27/24 18:59 06:59 18:59 Intake Total 1640 Balance 1640 Intake: Intake, IV Titration 1100 Amount Magnesium Sulfate-D5w Pmx 200 1 gm In Dextrose/Water 1 100ml.bag @ 100 mls/hr IVPB Q1H [facility] Rx#: [id number] Potassium Chloride 20 meq 200 In Water For Injection 1 100ml.bag @ 50 mls/hr IVPB Q2H [facility] Rx#: [id number] Sodium Chloride 0.9% 1, 100 000 ml @ 100 mls/hr IV . Q10H [facility] Rx#:[id number] Sodium Chloride 0.9% 1, 600 000 ml @ 150 mls/hr IV . Q6H40M [facility] Rx#:[id number] Oral 540 Other: # Voids 4 3 - Labs CBC & Chem 7: 04/27/24 05:01 04/27/24 12:19 Labs: Abnormal Lab Results - Last 24 Hours (Table) 04/26/24 04/27/24 04/27/24 Range/Units 05:01 00:16 05:01 RBC 2.88 L (4.10-5.20) X 10*6/uL Hgb 9.5 L (12.0-15.0) g/dL Hct 27.4 L (37.2-46.3) % MCH 33.0 H (27.0-32.0) pg Potassium 3.1 L 2.9 L (3.5-5.5) mmol/L Chloride 110 H (96-109) mmol/L Creatinine 2.0 H (0.6-1.5) mg/dL Est GFR (CKD-EPI) 27 L (>=60) BUN/Creatinine Ratio 9.45 L (12.00-20.00) Ratio Calcium 10.8 H (8.7-10.3) mg/dL Alkaline Phosphatase 39 L (41-126) U/L Total Protein 5.8 L (6.2-8.2) g/dL 04/27/24 Range/Units 07:17 RBC (4.10-5.20) X 10*6/uL Hgb (12.0-15.0) g/dL Hct (37.2-46.3) % MCH (27.0-32.0) pg Potassium 3.4 L (3.5-5.5) mmol/L Chloride (96-109) mmol/L Creatinine (0.6-1.5) mg/dL Est GFR (CKD-EPI) (>=60) BUN/Creatinine Ratio (12.00-20.00) Ratio Calcium (8.7-10.3) mg/dL Alkaline Phosphatase (41-126) U/L Total Protein (6.2-8.2) g/dL
[2024-04-28] MEDS: LACTULOSE 20 GM/30 ML CUP PO ONE (10:37)
[2024-04-28 10:59] LABS: Basophils # (A) 0.04 X 10*3/uL (0.00-0.10); Basophils % (A) 0.5 %; Eosinophils # (A) 0.18 X 10*3/uL (0.04-0.35); Eosinophils % (A) 2.2 %; HCT 28.4 % (37.2-46.3); HGB 9.5 g/dL (12.0-15.0); Lymphocytes # (A) 2.84 X 10*3/uL (0.90-5.00); Lymphocytes % (A) 35.3 %; MCH 32.9 pg (27.0-32.0); MCHC 33.5 g/dL (32.0-37.0); MCV 98.3 FL (80.0-97.0); Mean Platelet Volume 11.3 FL (9.5-12.2); Monocytes # (A) 0.65 X 10*3/uL (0.20-1.00); Monocytes % (A) 8.1 %; NRBC Per 100 WBC 0 X 10*3/uL (0.00-0.01); Neutrophils # (A) 4.31 X 10*3/uL (1.80-7.70); Neutrophils % (A) 53.5 %; Platelet Count 200 X 10*3/uL (140-440); RBC 2.89 X 10*6/uL (4.10-5.20); RDW 12.5 % (11.5-14.5); WBC 8.05 X 10*3/uL (4.50-10.00)
[2024-04-28 11:03] LABS: Blood Urea Nitrogen 11.9 mg/dL (9.0-27.0); Calcium 8.5 mg/dL (8.7-10.3); Carbon Dioxide 18.7 mmol/L (21.6-31.8); Chloride 115 mmol/L (96-109); Glucose 89 mg/dL (70-110); Magnesium 1.6 mg/dL (1.5-2.4); Potassium 3.6 mmol/L (3.5-5.5); Sodium 144 mmol/L (135-145)
[2024-04-28] MEDS: POTASSIUM CHLORIDE ER 10 MEQ TAB.ER.PRT PO SCH (12:37)
--- NOTE | 2024-04-28 12:57 | P.PN ---
Subjective Progress Note Date: 04/28/24 Patient seen and examined at bedside. No acute events overnight. Denies weakness, tremors, chest pain, abdominal pain. Calcium at 13.4 --> 10.8 --> 9.4 --> 8.5. Potassium was at 3.3 --> 3.6 --> 3.1. --> 2.9 --> Patient given 60mEq for correction --> 3.2 --> 3.4, repleted per protocol --> 3.6. Mag 1.5 --> 1.8 --> 1.6. Creatinine was at 3.3 --> 2.44 --> 2.3 --> 2 --> 1.8. --> 1.7 Objective - Vital Signs Vital signs: Vital Signs Temp 98.6 F 04/28/24 01:40 Pulse 64 04/28/24 01:40 Resp 16 04/28/24 01:40 BP 160/78 04/28/24 01:40 Pulse Ox 96 04/28/24 01:40 FiO2 Intake & Output 04/27/24 04/28/24 04/28/24 18:59 06:59 18:59 Intake Total 1575 Balance 1575 Intake: Intake, IV Titration 975 Amount Sodium Chloride 0.9% 1, 600 000 ml @ 100 mls/hr IV . Q10H [facility] Rx#:[id number] Sodium Chloride 0.9% 1, 375 000 ml @ 75 mls/hr IV . [id number] [facility] Rx#:[id number] Oral 600 Other: # Voids 3 # Bowel Movements 1 - Exam Physical examination: Vital signs reviewed General: non toxic, no distress, appears at stated age Head: atraumatic, normocephalic, symmetric Mouth: no lip lesion, mucus membranes moist Cardiovascular: S1S2 bradycardic, no murmur Lungs: CTA bilateral, no rhonchi, no rales, no accessory muscle use Abdominal: soft, nontender to palpation, no guarding Ext: muscle strength 5 out of 5 in all 4 extremities grossly, no gross muscle atrophy, no contractures, positive dorsalis pedis pulse bilateral, no edema Neuro: no gross focal neuro deficits Psych: Alert, oriented, appropriate affect and mood - Labs CBC & Chem 7: 04/28/24 03:40 04/28/24 03:40 Labs: Abnormal Lab Results - Last 24 Hours (Table) 04/27/24 04/27/24 04/27/24 Range/Units 05:01 05:01 07:17 RBC 2.88 L (4.10-5.20) X 10*6/uL Hgb 9.5 L (12.0-15.0) g/dL Hct 27.4 L (37.2-46.3) % MCH 33.0 H (27.0-32.0) pg Potassium 3.2 L 3.4 L (3.5-5.5) mmol/L Chloride 110 H (96-109) mmol/L Carbon Dioxide 19.7 L (21.6-31.8) mmol/L Creatinine 1.8 H (0.6-1.5) mg/dL Est GFR (CKD-EPI) 31 L (>=60) BUN/Creatinine Ratio 8.22 L (12.00-20.00) Ratio Alkaline Phosphatase 40 L (41-126) U/L Total Protein 5.5 L (6.2-8.2) g/dL Albumin 3.6 L (3.8-4.9) g/dL Assessment and Plan Assessment: -SERGIO in the setting of calcium induced ATN secondary to diuretic use and dehydration. Cr baseline 0.6-0.8 now at 2.3 --> 2 --> 1.8 --> 1.7. UA unremarkable. 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 Calcium initially at 15.9 --> 14.3 --> 10.8 --> 9.4 --> 8.5 -Hypokalemia due to dehydration. K initially at 2.7 --> 3.3 --> 3.1 --> 2.9 --> 3.2 --> 3.4 --> 3.6 -Leslie's thyroiditis status post total thyroidectomy with parathyroidectomy. Managed with synthroid Plan: Hold indapamide, calcium carbonate (Tums) and Vit D Continue IVF 0/9% NaCl 75 cc/hr Potassium 40mEq PO today Magnesium 2g IV today Start Calcitriol 0.5mg PO daily Status post 2 dose of calcitonin IM and 1 dose Zometa. CMP, Mag 2-3 days post discharge. Avoid nephrotoxic agents I have seen and examined the patient with resident and agree with A&P as written. Resume calcitriol at lower than home dose. F/u outpatient 1 week post-dc. Hypercalcemia workup negative. PTH suppressed, vit d/1,25D wnl, ZEKE wnl, no monoclonality on IF.
[2024-04-28] MEDS: POTASSIUM CHLORIDE ER 20 MEQ TAB.ER PO STA (13:16)
[2024-04-28] MEDS: MAGNESIUM SULFATE-D5W PMX 1 GM in DEXTROSE/WATER 1 100ML.BAG IVPB SCH (13:17)
[2024-04-28 14:39] VITALS: BP 138/70; PULSE 55; RESP 17; TEMP 98.1
--- NOTE | 2024-05-02 21:49 | P.DS ---
Providers Date of admission: 04/24/24 19:26 Attending physician: Oscar Hagen Consults: 04/24/24 19:24 Consult Physician Routine Consulting Provider: Jovanny Ramos Consult Reason/Comments: hypercalcemia Do you want consulting provider notified?: Yes Primary care physician: Lola Mcgowan [facility] Course: Final Diagnosis Hypercalcemia, calcium was 15.9 on admission, trending down and all calcium supplements including vitamin D and hydrochlorothiazide are on hold Acute kidney injury, likely ATN and hypovolemic due to acute dehydration. Also worsened with hydrochlorothiazide and hypercalcemia Hypokalemia secondary to dehydration, improving after replacement, recommend daily supplementation History of Leslie's thyroiditis, status post total thyroidectomy and total parathyroidectomy maintained on levothyroxine Generalized weakness likely secondary to dehydration Discharge Disposition Patient is stable for discharge home. Patient to see nephrology, endocrinology and PCP Dr. Mcgowan in the office in 2 to 3 days. Repeat BMP magnesium. Hospital Course This is a pleasant 64-year-old female who was called by her primary care provider for abnormal labs and instructed to come to the ER. Patient was admitted for hypercalcemia along with SERGIO with nephrology following. Patient maintained on fluid hydration and calcium is improving currently at 10 and initially was above 14 on admission. Patient does have history of breast cancer status postmastectomy in 2002. Patient follows with endocrine in the outpatient setting and had been prescribed calcium supplements along with vitamin C and D and noted to have hypercalcemia. Patient also admitted with acute kidney injury and dehydration. On admission her BUN was 30 and creatinine 2.44, sodium 141, potassium 2.7. Calcium was 15.9, UA was negative. She was admitted to the hospital with nephrology consultation. Calcitriol dosing has been decreased, electrolytes repleted. Calcium is normalized. Patient was hydrated with normal saline. Indapamide has been held. Now BUN is 11.9, creatinine is 1.7. Calcium is 8.5. Magnesium 1.6, potassium 3.6. Patient is awake alert oriented. She is not having chest pain, shortness of breath. No nausea, vomiting or diarrhea. Please see medication reconciliation for a list of current medications. Thank you for allowing us to participate in the care of this patient. The impression and plan of care has been dictated by Reyna Scott, Nurse Practitioner as directed. Dr. Philipp MD I have performed a history and physical examination and medical decision making of this patient, discussed the same with the dictator, and agree with the dictators assessment and plan as written, documented as a scribe. Based on total visit time, I have performed more than 50% of this visit. Patient Condition at Discharge: Fair Plan - Discharge Summary New Discharge Prescriptions: New Nicotine 14Mg/24Hr Patch [Habitrol] 1 patch TRANSDERM DAILY #6 patch Potassium Chloride ER [K-Dur 10] 10 meq PO BID 10 Days #20 tab calcitrioL [Rocaltrol] 0.5 mcg PO DAILY #60 cap Continue Albuterol Inhaler [Ventolin Hfa Inhaler] 1 - 2 puff INHALATION RT-Q6H PRN PRN Reason: Shortness Of Breath Or Wheezing Levothyroxine Sodium [Synthroid] 88 mcg PO DAILY Vitamin B Complex/Vitamin C 1 tab PO HS Fluticasone Nasal [place] [Flonase Nasal [place]] 1 spray EA NOSTRIL DAILY@1200 Famotidine [Pepcid] 20 mg PO BID Cetirizine HCl [Zyrtec] 10 mg PO HS Discontinued calcitrioL [Rocaltrol] 1 mcg PO DAILY Indapamide [Lozol] 1.25 mg PO DAILY Calcium Carbonate [Tums] 1,000 mg PO HS Cholecalciferol (Vitamin D3) [Vitamin D3 (50 Mcg = 2000 Iu)] 50 mcg PO HS Discharge Medication List Albuterol Inhaler [Ventolin Hfa Inhaler] 1 - 2 puff INHALATION RT-Q6H PRN 04/24/24 [History] Cetirizine HCl [Zyrtec] 10 mg PO HS 04/24/24 [History] Famotidine [Pepcid] 20 mg PO BID 04/24/24 [History] Fluticasone Nasal [place] [Flonase Nasal [place]] 1 spray EA NOSTRIL DAILY@1200 04/24/24 [History] Levothyroxine Sodium [Synthroid] 88 mcg PO DAILY 04/24/24 [History] Vitamin B Complex/Vitamin C 1 tab PO HS 04/24/24 [History] Nicotine 14Mg/24Hr Patch [Habitrol] 1 patch TRANSDERM DAILY #6 patch 04/28/24 [Rx] Potassium Chloride ER [K-Dur 10] 10 meq PO BID 10 Days #20 tab 04/28/24 [Rx] calcitrioL [Rocaltrol] 0.5 mcg PO DAILY #60 cap 04/28/24 [Rx] Follow up Appointment(s)/Referral(s): Scott Armendariz MD [REFERRING] - 1 Week (please call the office to schedule a follow up appointment) Jovanny Ramos DO [STAFF PHYSICIAN] - 06/01/24 9:40 am (appt with Sayra FRANCO) Lola Mcgowan [Primary Care Provider] - 1-2 days (please call to schedule a follow up appointment.) Ambulatory/Diagnostic Orders: Comprehensive Metabolic Panel [LAB.AMB] Time Frame: 3 Days, Location: None Selected Magnesium [LAB.AMB] Location: None Selected Patient Instructions/Handouts: Hypercalcemia (DC) Activity/Diet/Wound Care/Special Instructions: Repeat blood work on wednesday. Follow up with Dr. Ramos in the office in 1 week. Discharge Disposition: HOME SELF-CARE
== END 2024-04-28 16:55 | disposition home or self-care (01) | DRG 640 ==
LOC: EC 16:56 → 5NMEDONC 19:26
PROVIDERS: ADMIT Hospitalist; ATTEND Hospitalist
DX: E83.52 Hypercalcemia (principal); N17.0 Acute kidney failure with tubular necrosis; E87.6 Hypokalemia; E86.0 Dehydration; E86.1 Hypovolemia; E89.0 Postprocedural hypothyroidism; F17.210 Nicotine dependence, cigarettes, uncomplicated; E89.2 Postprocedural hypoparathyroidism; E06.3 Autoimmune thyroiditis; K21.9 Gastro-esophageal reflux disease without esophagitis; Z94.7 Corneal transplant status; Z90.11 Acquired absence of right breast and nipple; Z79.51 Long term (current) use of inhaled steroids; Z79.890 Hormone replacement therapy; Z80.3 Family history of malignant neoplasm of breast; Z85.3 Personal history of malignant neoplasm of breast
CPT/HCPCS: 36415; 71045; 80048; 80053; 81003; 82164; 82306; 82330; 82652; 83690; 83735; 83970; 84100; 84132; 84165; 84166; 84443; 85025; 86334; 93005; 96361; 96365; 96366; 96368; 96372; 99291

== ENCOUNTER → 2024-04-24 | Outpatient (CLI) | payer MEDICARE ==
[2024-04-24 14:58] LABS: Basophils # (A) 0.08 X 10*3/uL (0.00-0.10); Eosinophils # (A) 0.18 X 10*3/uL (0.04-0.35); Eosinophils % (A) 2.2 %; HCT 37.4 % (37.2-46.3); HGB 12.9 g/dL (12.0-15.0); Lymphocytes # (A) 3.23 X 10*3/uL (0.90-5.00); Lymphocytes % (A) 39.6 %; MCH 31.5 pg (27.0-32.0); MCHC 34.5 g/dL (32.0-37.0); MCV 91.4 FL (80.0-97.0); Mean Platelet Volume 10.5 FL (9.5-12.2); Monocytes # (A) 0.51 X 10*3/uL (0.20-1.00); Monocytes % (A) 6.3 %; NRBC Per 100 WBC 0 X 10*3/uL (0.00-0.01); Neutrophils # (A) 4.13 X 10*3/uL (1.80-7.70); Neutrophils % (A) 50.5 %; Platelet Count 284 X 10*3/uL (140-440); RBC 4.09 X 10*6/uL (4.10-5.20); RDW 12.2 % (11.5-14.5); WBC 8.16 X 10*3/uL (4.50-10.00)
[2024-04-24 15:39] LABS: Chol/HDL Ratio 3.93 Ratio; LDL Cholesterol,Calculated 100.9 mg/dL (0.0-131.0)
[2024-04-24 15:49] LABS: ALT 14 U/L (8-44); AST 13 U/L (13-35); Albumin 4.5 g/dL (3.8-4.9); Alkaline Phosphatase 51 U/L (41-126); Blood Urea Nitrogen 27.5 mg/dL (9.0-27.0); Calcium 15.3 mg/dL (8.7-10.3); Carbon Dioxide 28.6 mmol/L (21.6-31.8); Chloride 102 mmol/L (96-109); Globulin 2.5 g/dL (1.6-3.3); Glucose 97 mg/dL (70-110); Potassium 3.1 mmol/L (3.5-5.5); Sodium 142 mmol/L (135-145); Total Bilirubin 0.4 mg/dL (0.3-1.2)
== END | disposition home or self-care (01) ==
LOC: LABWHC1 08:26
PROVIDERS: ATTEND Student in an Organized Health Care Education/Training Program
DX: Z14.8 Genetic carrier of other disease
CPT/HCPCS: 36415; 80053; 80061; 84443; 85025

== ENCOUNTER → 2024-05-01 | Outpatient (CLI) | payer MEDICARE ==
[2024-05-01 16:09] LABS: Magnesium 1.5 mg/dL (1.5-2.4)
[2024-05-01 16:33] LABS: ALT 35 U/L (8-44); AST 19 U/L (13-35); Albumin 4.1 g/dL (3.8-4.9); Albumin/Globulin Ratio 1.95 Ratio (1.60-3.17); Alkaline Phosphatase 61 U/L (41-126); Blood Urea Nitrogen 8.7 mg/dL (9.0-27.0); Calcium 7.8 mg/dL (8.7-10.3); Chloride 108 mmol/L (96-109); Globulin 2.1 g/dL (1.6-3.3); Glucose 80 mg/dL (70-110); Potassium 3.6 mmol/L (3.5-5.5); Sodium 144 mmol/L (135-145); Total Bilirubin 0.3 mg/dL (0.3-1.2); Total Protein 6.2 g/dL (6.2-8.2)
== END | disposition home or self-care (01) ==
LOC: LABWHC1 10:23
DX: E83.52 Hypercalcemia (principal); E83.42 Hypomagnesemia
CPT/HCPCS: 36415; 80053; 83735

== ENCOUNTER → 2024-05-04 | Outpatient (CLI) | payer MEDICARE ==
--- NOTE | 2024-05-05 13:28 | MR ---
EXAMINATION TYPE: MR liver wo/w con DATE OF EXAM: 05/04/2024 10:59 AM CLINICAL INDICATION: Female, 64 years old with history of K76.9 liver disease; PHH, F/U abnormal US o f liver x 1 year COMPARISON: 07/02/2023. TECHNIQUE: Multiplanar multi-sequence imaging was performed without contrast. Post contrast imaging was performed. Post IV contrast subtraction images were also submitted for review. IV Contrast: 7.5 cc Gadavist FINDINGS: LOWER CHEST: Bilateral breast implants. The heart is mildly enlarged for size. ABDOMEN Liver: Multiple hepatic masses are seen throughout the liver largest in the left hepatic lobe measuri ng 47 mm and in the right hepatic lobe measuring up tor 27 mm near the gallbladder fossa. These have subtle internal complexity. Of these lesions demonstrate progressive enhancement some of which is alex trally located. Gallbladder and Bile ducts: No evidence for ductal dilation, or biliary stricture or evidence of chol edocholithiasis. The gallbladder is within normal limits. Pancreas: No ductal dilation. No evidence for solid mass. Spleen: Normal for size. Adrenal glands: Unremarkable. Kidneys: Simple appearing high T2 low T1 signal renal cyst. No evidence for obstructive uropathy. No suspicious renal masses. Stomach and Bowel: No evidence for bowel wall thickening or evidence for obstruction. Retroperitoneum/Peritoneum: No evidence of pneumoperitoneum or free fluid. Vasculature: No aortic aneurysm. Musculoskeletal: The osseous structures appear intact. Lymph Nodes: No gross evidence for lymphadenopathy. Abdominal wall: Unremarkable. IMPRESSION: Multiple liver masses which do not have classic benign enhancement characteristics. When comparing to prior on 07/02/2023 (not significantly changed in size since prior exam almost a 10 months ago, there are at least 10 of these lesions. Correlate with history of malignancy. Consider tissue sampling if not already performed. . [facility], , 05/05/2024 1:26 PM
== END | disposition home or self-care (01) ==
LOC: RADMRIMAIN 09:55
PROVIDERS: ATTEND Internal Medicine Gastroenterology
DX: K76.9 Liver disease, unspecified (principal); R16.0 Hepatomegaly, not elsewhere classified
CPT/HCPCS: 74183; A9585

== ENCOUNTER → 2024-05-12 | Outpatient (CLI) | payer MEDICARE ==
[2024-05-12 18:47] LABS: ALT 15 U/L (8-44); AST 15 U/L (13-35); Albumin 4.4 g/dL (3.8-4.9); Albumin/Globulin Ratio 1.76 Ratio (1.60-3.17); Alkaline Phosphatase 62 U/L (41-126); Blood Urea Nitrogen 13.2 mg/dL (9.0-27.0); Carbon Dioxide 24.8 mmol/L (21.6-31.8); Chloride 106 mmol/L (96-109); Globulin 2.5 g/dL (1.6-3.3); Glucose 90 mg/dL (70-110); Potassium 4.4 mmol/L (3.5-5.5); Sodium 141 mmol/L (135-145); T4, Free (Free Thyroxine) 1.44 ng/dL (0.80-1.80); Total Bilirubin 0.3 mg/dL (0.3-1.2); Total Protein 6.9 g/dL (6.2-8.2)
== END | disposition home or self-care (01) ==
LOC: LABWHC1 12:22
PROVIDERS: ATTEND Internal Medicine
CPT/HCPCS: 36415; 80053; 82306; 84439; 84443

== ENCOUNTER 2024-06-05 13:23 | Emergency (ER) | payer MEDICARE ==
--- NOTE | 2024-06-05 14:01 | ED ---
ENT HPI - General Source: patient, RN notes reviewed Mode of arrival: ambulatory Limitations: no limitations - History of Present Illness complaint: sore throat <Veronica Alford - Last Filed: 06/05/24 13:59> - General Source: patient, RN notes reviewed Mode of arrival: ambulatory Limitations: no limitations - History of Present Illness MD complaint: sore throat Onset/Timin -: days(s) Location: throat Associated Symptoms: sore throat <Lan Desai - Last Filed: 06/05/24 19:47> - General Chief complaint: ENT Stated complaint: neck swelling Time Seen by Provider: 06/05/24 13:45 - History of Present Illness Initial comments: Quick Note: This is a 64-year-old female who presents to the emergency department for a sore throat. States that it started over a week ago. Her primary care provider put her on antibiotics and steroids. Feels like it got temporarily better but then worsened again. It is painful to swallow. Denies any chest pain or shortness of breath. Does not believe she was ever checked f or strep. She went to urgent care and they advised she come here for further evaluation. States that the left side of her neck feels swollen. (Veronica Alford) This is a 64-year-old female presenting with sore throat and left neck swelling x 7 days. Patient states she was given antibiotics (Augmentin and a Z-Aureliano) for an ear sinus infection infection. Patient states she was sent to the ER for further evaluation after complaining of sore throat and swelling of the left side of her neck. Paper prescription provided by patient advised further ER evaluation but no indication of any specific imaging requested. Patient denies fever, chills, chest pain, dyspnea, hemoptysis, lip/throat swelling, abdominal pain, N/V/D. (Lan Desai) - Related Data Home Medications Medication Instructions Recorded Confirmed Albuterol Inhaler [Ventolin Hfa 1 - 2 puff INHALATION RT-Q6H PRN 04/24/24 04/24/24 Inhaler] Cetirizine HCl [Zyrtec] 10 mg PO HS 04/24/24 04/24/24 Famotidine [Pepcid] 20 mg PO BID 04/24/24 04/24/24 Fluticasone Nasal [place] [Flonase 1 spray EA NOSTRIL DAILY@1200 04/24/24 04/24/24 Nasal [place]] Levothyroxine Sodium [Synthroid] 88 mcg PO DAILY 04/24/24 04/24/24 Vitamin B Complex/Vitamin C 1 tab PO HS 04/24/24 04/24/24 Previous Rx's Medication Instructions Recorded Nicotine 14Mg/24Hr Patch [Habitrol] 1 patch TRANSDERM DAILY #6 patch 04/28/24 Potassium Chloride ER [K-Dur 10] 10 meq PO BID 10 Days #20 tab 04/28/24 calcitrioL [Rocaltrol] 0.5 mcg PO DAILY #60 cap 04/28/24 Levofloxacin [Levaquin] 750 mg PO DAILY 10 Days #10 tab 06/05/24 Allergies Allergy/AdvReac Type Severity Reaction Status Date / Time No Known Allergies Allergy Verified 06/05/24 13:44 Review of Systems ROS Other: All systems not noted in ROS Statement are negative. <Veronica Alford - Last Filed: 06/05/24 13:59> ROS Other: All systems not noted in ROS Statement are negative. <Lan Desai - Last Filed: 06/05/24 19:47> ROS Statement: Those systems with pertinent positive or pertinent negative responses have been documented in the HPI. Past Medical History Past Medical History: Cancer, COPD, Thyroid Disorder Additional Past Medical History / Comment(s): OB history: 3 vaginal deliveries, Hiatal Hernia History of Any Multi-Drug Resistant Organisms: None Reported Past Surgical History: Tubal Ligation Additional Past Surgical History / Comment(s): right mastectomy 2002, with implants to both sides 2003,HERNIA-LT ING A CHILD, CORNEAL TRANSPLANT RT EYE 1997, ALL BOTTOM TEETH REMOVED 10/2014 Past Anesthesia/Blood Transfusion Reactions: Postoperative Nausea & Vomiting (PONV) Additional Past Anesthesia/Blood Transfusion Reaction / Comment(s): PONV WITH TEETH EXTRACTIONS 10/2014 Past Psychological History: No Psychological Hx Reported Smoking Status: Current every day smoker Past Alcohol Use History: None Reported Past Drug Use History: None Reported - Past Family History Mother Family Medical History: Cancer Additional Family Medical History / Comment(s): BREAST CA Father Family Medical History: Cancer Additional Family Medical History / Comment(s): PROSTATE <Veronica Alford - Last Filed: 06/05/24 13:59> General Exam Limitations: no limitations <Veronica Alford - Last Filed: 06/05/24 13:59> General appearance: alert, in no apparent distress Head exam: Present: atraumatic, normocephalic, normal inspection Eye exam: Present: normal appearance, PERRL, EOMI. Absent: scleral icterus, conjunctival injection, periorbital swelling ENT exam: Present: normal exam, mucous membranes moist, TM's normal bilaterally, other (Positive frontal and maxillary sinus tenderness. Positive left submandibular LAD with tenderness. Negative overlying erythema or warmth) Neck exam: Present: normal inspection. Absent: tenderness, meningismus, lymphadenopathy Respiratory exam: Present: normal lung sounds bilaterally. Absent: respiratory distress, wheezes, rales, rhonchi, stridor Cardiovascular Exam: Present: regular rate, normal rhythm, normal heart sounds. Absent: systolic murmur, diastolic murmur, rubs, gallop, clicks GI/Abdominal exam: Present: soft, normal bowel sounds. Absent: distended, tenderness, guarding, rebound, rigid Extremities exam: Present: normal inspection, full ROM, normal capillary refill. Absent: tenderness, pedal edema, joint swelling, calf tenderness Back exam: Present: normal inspection Neurological exam: Present: alert, oriented X3, CN II-XII intact Psychiatric exam: Present: normal affect, normal mood Skin exam: Present: warm, dry, intact, normal color. Absent: rash <Lan Desai - Last Filed: 06/05/24 19:47> - General Exam Comments Initial Comments: Visual Physical Exam Vital signs reviewed General: Well-appearing, nontoxic, no acute distress. Head: Normocephalic, atraumatic Eyes: PERRLA, EOMI ENT: Airway patent Chest: Nonlabored breathing Skin: No visual rash, normal skin tone Neuro: Alert and oriented 3 Musculoskeletal: No gross abnormalities (Veronica Alford) Course Vital Signs 06/05/24 06/05/24 13:42 16:00 Temperature 98.8 F 98.0 F Pulse Rate 71 72 Respiratory 20 18 Rate Blood Pressure 144/81 136/78 O2 Sat by Pulse 96 99 Oximetry Medical Decision Making <Veronica Alford - Last Filed: 06/05/24 13:59> <Lan Desai - Last Filed: 06/05/24 19:47> - Medical Decision Making I performed the QuickNote portion of this chart. Signed Veronica Alford PA-C. (Veronica Alford) Was pt. sent in by a medical professional or institution ([facility], [employer], urgent ca re, hospital, or retirement...) When possible be specific @ -No Did you speak to anyone other than the patient for history (EMS, parent, family, police, friend...)? What history was obtained from this source @ -No Did you review nursing and triage notes (agree or disagree)? Why? @ -I reviewed and agree with nursing and triage notes Were old charts reviewed (outside hosp., previous admission, EMS record, old EKG, old radiological studies, urgent care reports/EKG's, retirement records)? Report findings @ -No old charts were reviewed Differential Diagnosis (chest pain, altered mental status, abdominal pain women, abdominal pain men, vaginal bleeding, weakness, fever, dyspnea, syncope, headache, dizziness, GI bleed, back pain, seizure, CVA, palpatations, mental health, musculoskeletal)? @ -Differential Fever: Pneumonia, viral URI, endocarditis, myocarditis, pericarditis, otitis, sinusitis, peritonsillar Abscess, retropharyngeal Abscess, epiglottitis, peritonitis, appendicitis, Milvia cystitis, diverticulitis, hepatitis, colitis, UTI, PID, TOA, pyelonephritis, prostatitis, epididymitis, meningitis, encephalitis, pulmonary embolism, CVA, thyroid storm, pancreatitis, adrenal crisis, cavernous sinus thrombosis, this is not meant to be an all-inclusive list. EKG interpreted by me (3pts min.). @ -Not done X-rays interpreted by me (1pt min.). @ -None done CT interpreted by me (1pt min.). @ -None done U/S interpreted by me (1pt. min.). @ -None done What testing was considered but not performed or refused? (CT, X-rays, U/S, labs)? Why? @ -None What meds were considered but not given or refused? Why? @ -None Did you discuss the management of the patient with other professionals (professionals i.e. [facility], [employer]ER, lab, RT, psych nurse, social media intern, director industrial, teacher, risk officer, caseworker)? Give summary @ -No Was smoking cessation discussed for >3mins.? @ -No Was critical care preformed (if so, how long)? @ -No Were there social determinants of health that impacted care today? How? (Homelessness, low income, unemployed, alcoholism, drug addiction, transportation, low edu. Level, literacy, decrease access to med. care, alf, rehab)? @ -No Was there de-escalation of care discussed even if they declined (Discuss DNR or withdrawal of care, Hospice)? DNR status @ -No What co-morbidities impacted this encounter? (DM, HTN, Smoking, COPD, CAD, Cancer, CVA, ARF, Chemo, Hep., AIDS, mental health diagnosis, sleep apnea, morbid obesity)? @ -None Was patient admitted / discharged? Hospital course, mention meds given and route, prescriptions, significant lab abnormalities, going to OR and other pertinent info. @ -Discharge. Patient advised lymphadenopathy is self-limited and only needs to be managed with Motrin and warm compresses every 10 minutes as needed. Advised continue Augmentin for sinusitis. Advised levofloxacin will be sent to cover for any ongoing sinusitis following completion of Augmentin. Vies return to ER if swelling on left side of neck worsens or does not improve. Undiagnosed new problem with uncertain prognosis? @ -No Drug Therapy requiring intensive monitoring for toxicity (Heparin, Nitro, Insulin, Cardizem)? @ -No Were any procedures done? @ -No Diagnosis/symptom? @ -Acute sinusitis with localized lymphadenopathy Acute, or Chronic, or Acute on Chronic? @ -Acute Uncomplicated (without systemic symptoms) or Complicated (systemic symptoms)? @ -Uncomplicated Side effects of treatment? @ -No Exacerbation, Progression, or Severe Exacerbation? @ -Exacerbation Poses a threat to life or bodily function? How? (Chest pain, [place], [place], pneumonia, PE, COPD, DKA, ARF, appy, cholecystitis, CVA, Diverticulitis, Homicidal, Suicidal, threat to staff... and all critical care pts) @ -No (Lan Desai) - Lab Data Lab Results 06/05/24 06/05/24 Range/Units 14:48 14:48 Influenza Type A (PCR) Not Detected (Not Detectd) Influenza Type B (PCR) Not Detected (Not Detectd) RSV (PCR) Not Detected (Not Detectd) SARS-CoV-2 (PCR) Not Detected (Not Detectd) Group A Strep (PCR) NOT DETECTED (Not Detectd) Disposition <Veronica Alford - Last Filed: 06/05/24 13:59> Is patient prescribed a controlled substance at d/c from ED?: No Time of Disposition: 15:54 <Lan Desai - Last Filed: 06/05/24 19:47> Clinical Impression: Sinusitis, Lymphadenopathy of head and neck Disposition: HOME SELF-CARE Condition: Good Instructions (If sedation given, give patient instructions): Sinusitis (ED), Lymphadenopathy (ED) Prescriptions: Levofloxacin [Levaquin] 750 mg PO DAILY 10 Days #10 tab Referrals: Faustina Collins NPC [REFERRING] - 1-2 days
[2024-06-05 16:02] VITALS: BP 136/78; PULSE 72; RESP 18; TEMP 98
== END 2024-06-05 16:02 | disposition home or self-care (01) ==
LOC: EC 13:23
DX: J32.9 Chronic sinusitis, unspecified (principal); R59.1 Generalized enlarged lymph nodes; F17.200 Nicotine dependence, unspecified, uncomplicated
CPT/HCPCS: 87636; 87651; 99283

== ENCOUNTER → 2024-06-07 | Outpatient (CLI) | payer MEDICARE ==
[2024-06-07 15:19] LABS: Blood Urea Nitrogen 9.3 mg/dL (9.0-27.0); Carbon Dioxide 25.4 mmol/L (21.6-31.8); Chloride 105 mmol/L (96-109); Chol/HDL Ratio 4.28 Ratio; Glucose 91 mg/dL (70-110); LDL Cholesterol,Calculated 100.4 mg/dL (0.0-131.0); Potassium 4.3 mmol/L (3.5-5.5); Sodium 142 mmol/L (135-145)
[2024-06-07 15:20] LABS: ALT 12 U/L (8-44); AST 16 U/L (13-35); Albumin 4.3 g/dL (3.8-4.9); Albumin/Globulin Ratio 1.87 Ratio (1.60-3.17); Alkaline Phosphatase 56 U/L (41-126); Calcium 8.6 mg/dL (8.7-10.3); Globulin 2.3 g/dL (1.6-3.3); Total Bilirubin 0.3 mg/dL (0.3-1.2); Total Protein 6.6 g/dL (6.2-8.2)
== END | disposition home or self-care (01) ==
LOC: LABWHC1 07:44
PROVIDERS: ATTEND Family Medicine
DX: E78.5 Hyperlipidemia, unspecified (principal); E83.51 Hypocalcemia; E87.6 Hypokalemia; R82.994 Hypercalciuria
CPT/HCPCS: 36415; 80053; 80061

== ENCOUNTER → 2024-07-18 | Outpatient (CLI) | payer MEDICARE ==
[2024-07-18 16:12] LABS: Bilirubin,Urine Negative (Negative); Blood,Urine Negative (Negative); Glucose,Urine (UA) Negative (Negative); Ketones,Urine Negative (Negative); Leukocyte Esterase,Urine Small (Negative); Nitrite,Urine Negative (Negative); Protein,Urine Negative (Negative); RBC,Urine 2 /hpf (0-5); Squamous Epithelial Cell,Urine 5 /hpf (0-4); Urobilinogen,Urine <2.0 mg/dL (<2.0); WBC,Urine 3 /hpf (0-5)
[2024-07-18 16:16] LABS: Appearance,Urine Clear (Clear); Color,Urine Colorless; Specific Gravity,Urine 1.008 (1.001-1.035)
[2024-07-18 16:18] LABS: PH, Urine 6.5 (5.0-8.0)
[2024-07-18 20:07] LABS: % Iron Saturation 27.67 (12.00-45.00); ALT 13 U/L (8-44); AST 18 U/L (13-35); Albumin 4.5 g/dL (3.8-4.9); Albumin/Globulin Ratio 1.88 Ratio (1.60-3.17); Alkaline Phosphatase 51 U/L (41-126); BUN/Creat Ratio 11.18 Ratio (12.00-20.00); Blood Urea Nitrogen 12.3 mg/dL (9.0-27.0); Calcium 9.2 mg/dL (8.7-10.3); Carbon Dioxide 25.7 mmol/L (21.6-31.8); Chloride 102 mmol/L (96-109); Globulin 2.4 g/dL (1.6-3.3); Glucose 86 mg/dL (70-110); Iron 83 UG/DL (50-170); Magnesium 2.1 mg/dL (1.5-2.4); Potassium 3.6 mmol/L (3.5-5.5); Sodium 141 mmol/L (135-145); Total Bilirubin 0.4 mg/dL (0.3-1.2); Total Iron Binding Capacity 300 UG/DL (228-460); Total Protein 6.9 g/dL (6.2-8.2)
[2024-07-18 20:09] LABS: Basophils # (A) 0.03 X 10*3/uL (0.00-0.10); Basophils % (A) 0.4 %; Eosinophils # (A) 0.07 X 10*3/uL (0.04-0.35); Eosinophils % (A) 0.9 %; HCT 40.7 % (37.2-46.3); HGB 13.7 g/dL (12.0-15.0); Lymphocytes % (A) 42.4 %; MCH 31.1 pg (27.0-32.0); MCHC 33.7 g/dL (32.0-37.0); MCV 92.3 FL (80.0-97.0); Mean Platelet Volume 10.1 FL (9.5-12.2); Monocytes # (A) 0.48 X 10*3/uL (0.20-1.00); Monocytes % (A) 6.4 %; NRBC Per 100 WBC 0 X 10*3/uL (0.00-0.01); Neutrophils # (A) 3.74 X 10*3/uL (1.80-7.70); Neutrophils % (A) 49.6 %; Platelet Count 295 X 10*3/uL (140-440); RBC 4.41 X 10*6/uL (4.10-5.20); RDW 12.5 % (11.5-14.5); WBC 7.54 X 10*3/uL (4.50-10.00)
[2024-07-19 02:55] LABS: Microalbumin Creatinine Ratio <19 mg/g Cr (0-30); Urine Creatinine 64.1 mg/dL (28.0-217.0)
== END | disposition home or self-care (01) ==
LOC: LABWHC1 15:15
PROVIDERS: ATTEND Internal Medicine
DX: N39.0 Urinary tract infection, site not specified (principal); N25.81 Secondary hyperparathyroidism of renal origin; N17.9 Acute kidney failure, unspecified; D64.9 Anemia, unspecified; E55.9 Vitamin D deficiency, unspecified; R80.9 Proteinuria, unspecified
CPT/HCPCS: 36415; 80053; 81001; 82043; 82306; 82570; 82728; 83540; 83550; 83735; 83970; 84100; 85025